=== PATIENT | male | born 1970 | race Caucasian/White ===

== ENCOUNTER 2018-12-23 15:08 | Emergency (ER) | payer OTHER, SELFPAY ==
[2018-12-23 15:09] VITALS: BP 150/97; PULSE 110; RESP 18; TEMP 36.7; O2SAT 95; BMI 40.1
--- NOTE | 2018-12-23 15:30 | ED.VISSUMM ---
- ER Visit Summary Date of Service: 12/23/18 Chief Complaint: Fever and cough History of Present Illness: The patient is a 48 M who developed fever, congestion, body aches on the . Symptoms seem to improve late last week and he went back to work. He is now noted increased congestion, sore throat, and cough again over the past 2 days. He reports fever up as high as 102. Several members of his family are ill with similar symptoms. Physical Examination: Blood pressure is 150/97, temperature 98.1, heart rate 110, respiratory rate 18, pulse ox 95% on room air. Patient sitting up on the side of bed. He has frequent moist sounding cough. He is in no distress. Head neck examination reveals clear fluid behind the right TM. Left TM is clear. Posterior pharynx examination is grossly unremarkable. Heart is regular rate and rhythm. Lungs sounds are clear. Abdomen soft nontender. Skin exam reveals no rash or lesions. Test Results: CBC is unremarkable. Chemistry studies significant for glucose of 400. Rapid strep is negative. Two-view chest x-ray read as early lingular infiltrate or atelectasis. Emergency Department Course and Treatment: Patient is given a liter of IV fluids and Tylenol. Test results were discussed with him. He had previously been on metformin XL, but stopped the medication in 2014 secondary to losing their insurance. He recently regained insurance but has not yet been back to establish a primary care physician. He will be given a dose of metformin at this time along with a dose of Levaquin. Repeat blood sugar after 1 L of fluid is 355. Patient will be given a prescription for metformin. He will contact his insurance company to find a local physician that accepts his insurance. Treatment Plan: [] Disposition: Discharge Impression: 1. Pneumonia 2. Diabetes with hyperglycemia secondary to medication noncompliance This note was generated with [employer] [facility] [employer] software. It may contain incorrect words, spelling, and punctuation that were not noted in review of the chart prior to signing ED Disposition - Plan for ED Patient: Referrals: Care Physician,No Primary [Primary Care Provider] -
[2018-12-23 15:36] VITALS: TEMP 36.7
[2018-12-23] MEDS: 0.9% Normal Saline 1,000 ML 1000 ML IV (15:43)
[2018-12-23] MEDS: Acetaminophen 500 MG Tablet 1000 MG PO (15:43)
--- NOTE | 2018-12-23 15:46 | RAD_ITS ---
STUDY: X-RAY CHEST REASON FOR EXAM: Male, 48 years old. Cough TECHNIQUE: PA and lateral views of the chest. COMPARISON: None. FINDINGS: Ill-defined opacity in the lingula is noted. There is no demonstrated pleural abnormality. Normal size heart. Normal mediastinum and meet. Normal visualized pulmonary arteries. Normal visualized aortic arch and descending thoracic aorta. Normal visualized thoracic spine. Normal visualized ribs, clavicles, and shoulders. There is no demonstrated abnormality of the visualized soft tissue structures of the upper abdomen. RAD/Chest PA and Lateral IMPRESSION: Early lingular infiltrate or atelectasis. Electronically Signed: Vega Gabriel MD at 16:01 EST , Service support ,
[2018-12-23 16:01] LABS: Absolute Lymphocyte Count 1.03 X10^3/ul (0.83-4.51); Absolute Neutrophil Count 3.7 X10^3/uL (2.0-7.7); Basophil# 0.05 X10^3/uL; Eosinophil# 0.13 X10^3/uL; Eosinophils% 2.5 % (0-5); Hematocrit 44.5 % (40-54); Hemoglobin 15.1 g/dl (13.0-16.5); Lymphocyte # 1.03 X10^3/ul (4.0); Lymphocyte % 19.6 % (19-41); Mean Corp Hgb Conc 33.9 g/gl (32-36); Mean Corpuscular Hgb 28.8 pg (27.0-32.0); Mean Corpuscular Volume 84.8 fL (80-94); Mean Platelet Vol. 10.4 fl (6.2-12.0); Monocyte# 0.32 X10^3/uL; Monocyte% 6.1 % (0-10); Neutrophil # 3.71 X10^3/uL (2.7-7.7); Neutrophil % 70.4 % (47-70); Platelet Count 155 K/mm3 (150-450); RBC Distribution Width CV 12.9 % (11.6-14.6); RBC Distribution Width SD 39.8 fl (35.1-43.9); Red Blood Count 5.25 M/mm3 (4.6-6.2); White Blood Count 5.3 K/mm3 (4.4-11.0)
[2018-12-23 16:02] LABS: POSITIVE COUNT NO; POSITIVE DIFFERENTIAL NO; POSITIVE MORPHOLOGY NO
[2018-12-23 16:07] LABS: Anion Gap 10 (5-15); BUN 15 mg/dL (7-18); BUN/Creat Ratio 13.3 RATIO (10-20); Calcium,Total 8.3 mg/dL (8.5-10.1); Chloride 99 mmol/L (98-107); Creatinine, Serum 1.13 mg/dL (0.70-1.30); EST Glomerular Filtration Rate 73 mL/min (>60); Est Glom Filt Rate - Afr Amer 88 mL/min (>60); Estimated Creatinine Clearance 88.38 ml/min; Glucose 400 mg/dL (74-106); Potassium 4.3 mmol/L (3.5-5.1); Sodium Level 135 mmol/L (136-145)
[2018-12-23] MEDS: levoFLOXacin 750 MG Tablet PO (16:27)
[2018-12-23 17:06] LABS: Bedside Glucose 355 mg/dL (70-110)
--- NOTE | 2018-12-23 17:10 | ED.DEP ---
ED Disposition - Plan for ED Patient: Disposition: Home or Assisted Living Instructions: ED Pneumonia Adult, ED Hyperglycemia Diabetic Prescriptions: Levofloxacin [Levaquin] 750 mg PO DAILY #4 tablet Metformin(XR) [Glucophage Xr] 1,000 mg PO DAILY #30 tablet Additional Instructions: Call your insurance company to get a list of local physicians.
[2018-12-23 17:21] VITALS: BP 130/106; RESP 18
== END 2018-12-23 17:22 | disposition home or self-care (01) ==
PROVIDERS: Emergency Provider Emergency Medicine
DX: J18.9 Pneumonia, unspecified organism (principal); E11.9 Type 2 diabetes mellitus without complications; Z91.14 Patient's other noncompliance with medication regimen; I25.2 Old myocardial infarction; Z87.442 Personal history of urinary calculi
CPT/HCPCS: 71046; 80048; 82962; 85025; 87880; 96360; 99284; J7030; A4216

== ENCOUNTER → 2019-05-29 | Outpatient (CLI) | payer OTHER, SELFPAY ==
[2019-05-29 10:25] LABS: Absolute Lymphocyte Count 0.82 X10^3/uL (0.83-4.51); Absolute Neutrophil Count 4.5 X10^3/uL (2.0-7.7); Basophil# 0.03 X10^3/uL; Basophil% 0.5 % (0-1); Eosinophil# 0.13 X10^3/uL; Eosinophils% 2.2 % (0-5); Hemoglobin 15.2 g/dL (13.0-16.5); Lymphocyte # 0.82 X10^3/ul (4.0); Lymphocyte % 13.8 % (19-41); Mean Corpuscular Hgb 28.8 pg (27.0-32.0); Mean Corpuscular Volume 87.3 fL (80-94); Mean Platelet Vol. 10.8 fl (6.2-12.0); Monocyte# 0.41 X10^3/uL; Monocyte% 6.9 % (0-10); NRBC Flagged by Analyzer 0 % (0-5); Neutrophil # 4.52 X10^3/uL (2.7-7.7); Neutrophil % 75.8 % (47-70); Platelet Count 172 K/mm3 (150-450); RBC Distribution Width CV 12.8 % (11.6-14.6); RBC Distribution Width SD 40.3 fl (35.1-43.9); Red Blood Count 5.27 M/mm3 (4.6-6.2)
[2019-05-29 10:44] LABS: Microalbumin,Random Urine 6.7 mg/L (NO RANGE EST.)
[2019-05-29 10:55] LABS: Vitamin B12 478 pg/mL (211-911)
[2019-05-29 11:19] LABS: ALB/GLOB Ratio 0.9 RATIO (0.9-2.4); AST(SGOT) 26 U/L (15-37); Alanine Aminotransfer ALT/SGPT 27 U/L (16-61); Albumin, Serum 3.3 g/dL (3.2-5.0); Alkaline Phosphatase 151 U/L (45-117); Anion Gap 10 (5-15); BUN 17 mg/dL (7-18); BUN/Creat Ratio 18.2 RATIO (10-20); Chloride 99 mmol/L (98-107); Cholesterol 206 mg/dL (200); Creatinine, Serum 0.94 mg/dL (0.70-1.30); EST Glomerular Filtration Rate 91 mL/min (>60); Est Glom Filt Rate - Afr Amer 110 mL/min (>60); Globulin 3.8 g/dL (2.2-4.2); Glucose 341 mg/dL (74-106); High Density Lipoprotein 35 mg/dL; Potassium 4.8 mmol/L (3.5-5.1); Protein, Total 7.1 g/dL (6.4-8.2); Sodium Level 137 mmol/L (136-145); Triglycerides 363 mg/dL; Very Low Density Lipoprotein 73 mg/dL (5-40)
[2019-05-29 14:14] LABS: T4 Free Direct 1.09 ng/dL (0.76-1.46)
[2019-06-04 14:27] LABS: Anti-Thyroglobulin AB < 1.0 IU/mL (0.0-0.9); Thyroglobulin, Serum Qt. 1.3 ng/mL (1.4-29.2); Thyroid Peroxidase AB 205 IU/mL (0-34); Vitamin B1, Thiamine 185.1 nmol/L (66.5-200.0)
== END | disposition home or self-care (01) ==
PROVIDERS: Family Provider Family Medicine; PCP Family Medicine; Referring Provider Family Medicine; Visit Provider Family Medicine
DX: E11.9 Type 2 diabetes mellitus without complications (principal); I25.10 Atherosclerotic heart disease of native coronary artery without angina pectoris; G62.9 Polyneuropathy, unspecified; R79.89 Other specified abnormal findings of blood chemistry
CPT/HCPCS: 80053; 80061; 82043; 82570; 82607; 83036; 84425; 84432; 84439; 84443; 85025; 86376; 86800

== ENCOUNTER → 2019-06-07 | Outpatient (CLI) | payer OTHER, SELFPAY ==
[2019-06-04 11:32] VITALS: BMI 39.3
--- NOTE | 2019-06-07 08:59 | ART_ITS ---
Reason For Study: decreased pedal pulses Left Segmental Pressures Left brachial= 122mmHg. Left posterior tibial artery = 148mmHg. Left dorsalis pedis artery = 133mmHg. The left dorsalis pedis waveforms are triphasic. The left posterior tibial artery waveforms are triphasic. Right Segmental Pressures Right brachial= 128mmHg. Right posterior tibial artery = 135mmHg. Right dorsalis pedis artery = 143mmHg. The right dorsalis pedis waveforms are triphasic. The right posterior tibial artery waveforms are triphasic. Indices The right ankle brachial index by the dorsalis pedis is 1.12. The right ankle brachial index by the posterior tibial artery is 1.05. The right ankle brachial index by the dorsalis pedis post exercise is 1.15. The left ankle brachial index by the dorsalis pedis is 1.04. The left ankle brachial index by the posterior tibial artery is 1.16. The left posterior tibial artery index post exercise is 1.21. Interpretation Summary Triphasic Doppler waveforms are noted at ankle level bilaterally. Pulse-volume recording waveform amplitudes are satisfactory at ankle and digital levels bilaterally. Resting ankle-brachial indices are normal bilaterally. Following a period of exercise, ankle pressures augment bilaterally, which is a normal physiological response. There is no evidence of significant arterial occlusive disease in the lower extremities bilaterally. Ordering Physician: Cb Rodriguez Performed By: SERVANDO CAMPOVERDE RVT
== END | disposition home or self-care (01) ==
LOC: CVS 08:56
PROVIDERS: Family Provider Family Medicine; PCP Family Medicine; Referring Provider Family Medicine; Visit Provider Family Medicine
DX: R09.89 Other specified symptoms and signs involving the circulatory and respiratory systems (principal)
CPT/HCPCS: 93922

== ENCOUNTER 2019-07-02 08:58 | Outpatient (RCR) | payer OTHER, SELFPAY ==
[2019-06-04 11:32] VITALS: BMI 39.3
== END 2019-07-02 23:59 | disposition home or self-care (01) ==
LOC: DC 08:58
PROVIDERS: Family Provider Family Medicine; PCP Family Medicine; Visit Provider Family Medicine
DX: Z71.3 Dietary counseling and surveillance (principal); E11.65 Type 2 diabetes mellitus with hyperglycemia
CPT/HCPCS: 97802

== ENCOUNTER → 2019-07-18 | Outpatient (CLI) | payer OTHER, SELFPAY ==
[2019-06-04 11:32] VITALS: BMI 39.3
--- NOTE | 2019-07-18 06:24 | ECHOCS_ITS ---
Reason For Study: DIZZINESS Procedure This was a 2D Doppler, Color Flow transthoracic echocardiogram. The study was technically difficult. Contrast injection was performed. Exam performed in department. Left Ventricle Normal size and thickness. The estimated ejection fraction is 55 %. No evidence for diastolic dysfunction. No regional wall motion abnormalities noted. Right Ventricle Normal RV size. Normal systolic function. Atria Normal left atrium. Normal right atrium. No doppler evidence for ASD. Mitral Valve There is no mitral valve stenosis. Mild (1+) mitral valve insufficiency. Tricuspid Valve There is no tricuspid stenosis. Trivial tricuspid valve insufficiency. Unable to estimate RV systolic pressure due to insufficient tricuspid regurgitant envelope. Aortic Valve Trisinus/trileaflet aortic valve. There is no aortic stenosis. No aortic valve insufficiency. Pulmonic Valve There is no pulmonic valvular stenosis. Trivial pulmonic valve insufficiency. Great Vessels Normal aortic root. Pericardium/Pleural No pericardial effusion. Medication Diluted definity 4.0ml given slow IV push to enhance endocardial definition. MMode/2D Measurements & Calculations LVIDd: 4.4 cm IVSd: 0.84 cm Ao root diam: 3.8 cm LVIDs: 3.3 cm LVPWd: 1.0 cm RVDd: 3.9 cm FS: 24.1 % LAV(MOD-bp): 66.7 ml EDV(MOD-sp4): 147.1 ml EDV(MOD-sp2): 100.6 ml LAV(MOD-bp) Indexed: 25.9 ml/m2 ESV(MOD-sp4): 75.1 ml EF(MOD-sp2): 62.0 % LAV(MOD-sp2): 51.3 ml EF(MOD-sp4): 49.0 % LAV(MOD-sp4): 67.1 ml SV(MOD-sp4): 72.0 ml SV(MOD-sp2): 62.4 ml LA A4 area: 23.3 cm2 LA dimension(2D): 3.7 cm RA A4 area: 16.0 cm2 Time Measurements MV dec time: 0.19 sec Doppler Measurements & Calculations MV E max pedro: 58.3 cm/sec Ao V2 max: 111.2 cm/sec LV V1 max: 101.4 cm/sec MV A max pedro: 70.6 cm/sec Ao max P.9 mmHg LV V1 max P.1 mmHg MV E/A: 0.83 PA V2 max: 77.5 cm/sec TR max pedro: 250.5 cm/sec TR max P.2 mmHg Interpretation Summary The estimated ejection fraction is 55 %. No evidence for diastolic dysfunction. Mild (1+) mitral valve insufficiency. The study was technically difficult. Contrast injection was performed. Ordering Physician: Rowan Sanchez Referring Physician: MASSIEL ROUSSEAU Performed By: Melanie Richard, BERTHA, RVT
--- NOTE | 2019-07-19 15:55 | STRESSREP_ITS ---
Stress Test Report Date: 07/18/2019 Procedure: Exercise tolerance test/imaging study Indications: Chest pain Consent: Per the patient Procedure: The patient exercised on a Moshe protocol for 5 minutes and 44 seconds achieving a peak heart rate of 157 bpm (92 % predicted maximal heart rate) with a peak blood pressure 184/90 mmHg and a peak MET capacity of 7 METs. The baseline ECG demonstrated normal sinus rhythm. The peak exercise ECG demonstrated sinus tachycardia with no significant ischemic changes. EKG during recovery revealed no significant ischemic changes [There were no cardiac dysrhythmias pretest, during exercise, or recovery]. The functional capacity was considered below average for age. There was [no complaint of chest discomfort during exercise or recovery]. The examination was discontinued secondary to dyspnea and lightheadedness. Impression: 1. Technically adequate (percent predicted maximal heart rate greater than 85%) exercise tolerance test 2. Stress test is negative for exercise-induced EKG changes of ischemia 3. The test test is negative for exercise-induced chest pain 4. Functional capacity is below average for age 5. Nuclear images pending Myocardial perfusion imaging study: Technique: The patient was injected with 14.3 mCi of technetium 99m Cardiolite and subsequently rest SPECT Cardiolite nuclear imaging was obtained in the horizontal long, vertical long, and short axis views. The patient exercised on a Moshe protocol. Please see above for details. The patient was injected with 44.6 mCi of technetium 99m Cardiolite and subsequently stress SPECT Cardiolite nuclear imaging was obtained in the horizontal long, vertical long, and short axis views. A gated Cardiolite study at peak stress was obtained. Interpretation: Rest and stress SPECT Cardiolite nuclear imaging status post realignment, normalization, and attenuation correction, demonstrates normal myocardial radi oisotope uptake in both the rest and stress images. The gated Cardiolite study demonstrates no significant regional wall motion abnormalities. The reported LVEF is 56 %. Impression: 1. There is no evidence of significant ischemia or infarction. 2. The gated Cardiolite study reports an LVEF of 56 %. This note was generated with [employer] software. It may contain incorrect words, spelling, and punctuation that were not noted in checking the note before signing.
== END | disposition home or self-care (01) ==
LOC: CVS 06:24
PROVIDERS: Family Provider Family Medicine; PCP Family Medicine; Referring Provider Specialist; Visit Provider Specialist
DX: R07.9 Chest pain, unspecified (principal); R42 Dizziness and giddiness
CPT/HCPCS: 78452; 93017; 93306; A9500; Q9957; A4216; C8929

== ENCOUNTER → 2019-08-22 | Outpatient (CLI) | payer OTHER, SELFPAY ==
[2019-07-30 11:23] VITALS: BMI 40.8
[2019-08-22 15:36] LABS: Absolute Lymphocyte Count 1.19 X10^3/uL (0.83-4.51); Absolute Neutrophil Count 6.8 X10^3/uL (2.0-7.7); Basophil# 0.04 X10^3/uL; Basophil% 0.5 % (0-1); Eosinophil# 0.14 X10^3/uL; Eosinophils% 1.6 % (0-5); Hematocrit 47.2 % (40-54); Hemoglobin 15.3 g/dL (13.0-16.5); Lymphocyte # 1.19 X10^3/ul (4.0); Lymphocyte % 13.6 % (19-41); Mean Corp Hgb Conc 32.4 g/dL (32-36); Mean Corpuscular Hgb 28.3 pg (27.0-32.0); Mean Corpuscular Volume 87.4 fL (80-94); Mean Platelet Vol. 10.8 fl (6.2-12.0); Monocyte# 0.57 X10^3/uL; Monocyte% 6.5 % (0-10); NRBC Flagged by Analyzer 0 % (0-5); Neutrophil # 6.75 X10^3/uL (2.7-7.7); Neutrophil % 77.2 % (47-70); Platelet Count 228 K/mm3 (150-450); RBC Distribution Width CV 12.7 % (11.6-14.6); RBC Distribution Width SD 40.4 fl (35.1-43.9); White Blood Count 8.7 K/mm3 (4.4-11.0)
[2019-08-22 15:46] LABS: Anion Gap 4 (5-15); BUN 17 mg/dL (7-18); BUN/Creat Ratio 17.7 RATIO (10-20); Calcium,Total 8.7 mg/dL (8.5-10.1); Chloride 105 mmol/L (98-107); Creatinine, Serum 0.96 mg/dL (0.70-1.30); EST Glomerular Filtration Rate 88 mL/min (>60); Est Glom Filt Rate - Afr Amer 106 mL/min (>60); Glucose 193 mg/dL (74-106); Magnesium 2.1 mg/dL (1.6-2.6); Potassium 4.6 mmol/L (3.5-5.1); Sodium Level 138 mmol/L (136-145)
[2019-08-26 11:26] LABS: Thyroid Stim Hormone (TSH) 4.52 uIU/mL (0.358-3.74)
== END | disposition home or self-care (01) ==
LOC: MFPLAB 12:30
PROVIDERS: Family Provider Family Medicine; PCP Family Medicine; Referring Provider Family Medicine; Visit Provider Family Medicine
DX: R19.7 Diarrhea, unspecified (principal); E06.3 Autoimmune thyroiditis; E66.01 Morbid (severe) obesity due to excess calories; E11.9 Type 2 diabetes mellitus without complications
CPT/HCPCS: 36415; 80048; 83036; 83735; 84439; 84443; 85025; 87177; 87209; 87493; 87506

== ENCOUNTER 2019-09-27 07:03 | Day surgery (SDC) | payer OTHER, SELFPAY ==
[2019-09-18 11:05] VITALS: BMI 41.5
[2019-09-18 13:37] LABS: Hematocrit 46.3 % (40-54); Hemoglobin 14.9 g/dL (13.0-16.5); Mean Corp Hgb Conc 32.2 g/dL (32-36); Mean Corpuscular Hgb 28.2 pg (27.0-32.0); Mean Corpuscular Volume 87.5 fL (80-94); Mean Platelet Vol. 10.5 fl (6.2-12.0); Platelet Count 216 K/mm3 (150-450); RBC Distribution Width SD 40.8 fl (35.1-43.9); Red Blood Count 5.29 M/mm3 (4.6-6.2); White Blood Count 6.5 K/mm3 (4.4-11.0)
[2019-09-18 13:56] LABS: Anion Gap 5 (5-15); BUN 18 mg/dL (7-18); Calcium,Total 9.2 mg/dL (8.5-10.1); Chloride 102 mmol/L (98-107); EST Glomerular Filtration Rate 95 mL/min (>60); Est Glom Filt Rate - Afr Amer 115 mL/min (>60); Glucose 226 mg/dL (74-106); Potassium 4.3 mmol/L (3.5-5.1); Sodium Level 138 mmol/L (136-145)
[2019-09-25 13:15] VITALS: BMI 41.5
--- NOTE | 2019-09-27 08:24 | CL.IE_ITS ---
Patient: JONEL MINOR Study Date: 09/27/2019 Performing: Anatoly Leggett MD : 1970 Age: 48 Gender: male PROCEDURES PERFORMED CO37-SPPUOKIME OF LOOP RECORDER INDICATIONS Syncope PROCEDURE DETAILS The patient was brought to the Catheterization Lab in the postabsorptive nonsedated state. Infor med consent was obtained prior to the procedure. Local anesthetic was given subcutaneously to the le ft subclavian region with Nesacaine 2%. Incision was made to the left subclavicular area. ICM Reveal LINQ was inserted into the pocket. The patient tolerated the procedure well. 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 Device Recommendations: Follow up with Primary Care Physician PROCEDURE MEDICATIONS Versed 1 mg IV Oxygen: 2 L/min via nasal cannula Antibiotic given in appropriate timeframe. Ancef 2 Gm IV @ 09/27/2019 07:57:06 Signed By Anatoly Leggett MD On 09/27/2019 08:22:57 Anatoly Leggett MD
== END 2019-09-27 09:30 | disposition home or self-care (01) ==
LOC: CLSP 07:03
PROVIDERS: Specialist; Family Provider Family Medicine; PCP Family Medicine; Referring Provider Internal Medicine Cardiovascular Disease; Visit Provider Internal Medicine Cardiovascular Disease
DX: R55 Syncope and collapse (principal); R07.89 Other chest pain; R00.2 Palpitations; E11.9 Type 2 diabetes mellitus without complications; I10 Essential (primary) hypertension; E03.9 Hypothyroidism, unspecified; G47.33 Obstructive sleep apnea (adult) (pediatric); F41.1 Generalized anxiety disorder; E66.9 Obesity, unspecified; Z88.8 Allergy status to other drugs, medicaments and biological substances; Z88.6 Allergy status to analgesic agent; Z91.040 Latex allergy status; Z79.4 Long term (current) use of insulin; Z79.899 Other long term (current) drug therapy; Z87.11 Personal history of peptic ulcer disease
CPT/HCPCS: 33285; 36415; 80048; 85027; 99152; 99153; J7040

== ENCOUNTER → 2020-04-27 08:44 | Outpatient (CLI) | payer OTHER, SELFPAY ==
[2020-01-06 08:49] VITALS: BMI 43.7
[2020-04-27 09:47] LABS: Absolute Neutrophil Count 4.4 X10^3/uL (2.0-7.7); Basophil# 0.03 X10^3/uL; Basophil% 0.5 % (0-1); Eosinophil# 0.17 X10^3/uL; Eosinophils% 2.8 % (0-5); Hemoglobin 15.2 g/dL (13.0-16.5); Mean Corpuscular Hgb 28.7 pg (27.0-32.0); Mean Platelet Vol. 10.9 fl (6.2-12.0); Monocyte# 0.45 X10^3/uL; Monocyte% 7.5 % (0-10); NRBC Flagged by Analyzer 0 % (0-5); Neutrophil # 4.42 X10^3/uL (2.7-7.7); Neutrophil % 73.5 % (47-70); Platelet Count 193 K/mm3 (150-450); RBC Distribution Width CV 12.7 % (11.6-14.6); RBC Distribution Width SD 39.9 fl (35.1-43.9); Red Blood Count 5.29 M/mm3 (4.6-6.2)
[2020-04-27 10:19] LABS: Hemoglobin A1c 11.1 % (3.8-5.6)
[2020-04-27 10:24] LABS: ALB/GLOB Ratio 0.9 RATIO (0.9-2.4); AST(SGOT) 16 U/L (15-37); Alanine Aminotransfer ALT/SGPT 23 U/L (16-61); Albumin, Serum 3.3 g/dL (3.2-5.0); Alkaline Phosphatase 155 U/L (45-117); Anion Gap 6 (5-15); BUN 19 mg/dL (7-18); BUN/Creat Ratio 20.7 RATIO (10-20); Calcium,Total 8.4 mg/dL (8.5-10.1); Chloride 103 mmol/L (98-107); Cholesterol 191 mg/dL (200); Creatinine, Serum 0.92 mg/dL (0.70-1.30); EST Glomerular Filtration Rate 93 mL/min (>60); Est Glom Filt Rate - Afr Amer 112 mL/min (>60); Globulin 3.7 g/dL (2.2-4.2); Glucose 366 mg/dL (74-106); High Density Lipoprotein 32 mg/dL; Potassium 4.3 mmol/L (3.5-5.1); Sodium Level 135 mmol/L (136-145); T4 Free Direct 0.98 ng/dL (0.76-1.46); Thyroid Stim Hormone (TSH) 7.83 uIU/mL (0.358-3.74); Triglycerides 359 mg/dL; Very Low Density Lipoprotein 72 mg/dL (5-40)
[2020-04-27 10:29] LABS: Microalbumin,Random Urine 9.2 mg/L (NO RANGE EST.)
[2020-04-28 16:33] LABS: Anti-Thyroglobulin AB < 1.0 IU/mL (0.0-0.9); Thyroglobulin, Serum Qt. 0.7 ng/mL (1.4-29.2); Thyroid Peroxidase AB 209 IU/mL (0-34)
== END ==
PROVIDERS: PCP Family Medicine; Visit Provider Family Medicine
DX: I25.10 Atherosclerotic heart disease of native coronary artery without angina pectoris (principal); E06.3 Autoimmune thyroiditis; E11.65 Type 2 diabetes mellitus with hyperglycemia
CPT/HCPCS: 36415; 80053; 80061; 82043; 82570; 83036; 84432; 84439; 84443; 85025; 86376; 86800

== ENCOUNTER → 2020-04-30 | Outpatient (CLI) | payer OTHER, SELFPAY ==
[2020-01-06 08:49] VITALS: BMI 43.7
--- NOTE | 2020-04-30 09:53 | US_ITS ---
STUDY: ABDOMINAL ULTRASOUND - RIGHT UPPER QUADRANT REASON FOR VISIT: Male, 49 years old RUQ PAIN TECHNIQUE: Ultrasound evaluation of the right upper quadrant was performed with real-time and static louis-scale imaging. TECHNICAL QUALITY: Limited. Examination limited due to a combination of factors including obesity and bowel gas. COMPARISON: None. FINDINGS: Liver: The liver measures 23.4 cm. There is increased echogenicity consistent with fatty infiltration. The bile ducts are within normal limits. There is hepatic color flow. The direction of portal flow is hepatopetal. There is no demonstrated mass lesion. Gallbladder: Normal distended gallbladder. The gallbladder wall measures 2 mm. There is a negative sonographic Larose''s sign. There is no pericholecystic fluid. There are no gallstones. Common Bile Duct (C.B.D.): The common bile duct is not visualized Pancreas: Visualized pancreas is unremarkable aside from being echogenic Right Kidney: Normal size of the right kidney. The right kidney measures 12.6 x 5.6 x 6.0 cm. Normal renal cortex. The right cortex measures 1.7 cm. There is no demonstrated renal mass or cyst. There is no right hydronephrosis, there is nonspecific borderline dilatation of the renal pelvis at 1.8 cm.. US/Abdomen Limited IMPRESSION: Hepatomegaly with diffuse fatty infiltration of the liver, no discrete lesion Nonspecific echogenic pancreas Electronically Signed: Juan Carlos Pérez MD at 10:46 EDT , Service support ,
== END | disposition home or self-care (01) ==
LOC: US 09:50
PROVIDERS: PCP Family Medicine; Referring Provider Family Medicine; Visit Provider Family Medicine
DX: R10.11 Right upper quadrant pain (principal)
CPT/HCPCS: 76705

== ENCOUNTER → 2020-07-27 | Outpatient (CLI) | payer OTHER, SELFPAY ==
[2020-01-06 08:49] VITALS: BMI 43.7
[2020-07-27 10:11] LABS: Hemoglobin A1c 11.1 % (3.8-5.6)
[2020-07-27 10:16] LABS: ALB/GLOB Ratio 0.9 RATIO (0.9-2.4); AST(SGOT) 17 U/L (15-37); Alanine Aminotransfer ALT/SGPT 23 U/L (16-61); Albumin, Serum 3.4 g/dL (3.2-5.0); Alkaline Phosphatase 147 U/L (45-117); Anion Gap 6 (5-15); BUN 19 mg/dL (7-18); BUN/Creat Ratio 20.3 RATIO (10-20); Calcium,Total 8.8 mg/dL (8.5-10.1); Chloride 98 mmol/L (98-107); Cholesterol 175 mg/dL (200); Creatinine, Serum 0.93 mg/dL (0.70-1.30); EST Glomerular Filtration Rate 90 mL/min (>60); Est Glom Filt Rate - Afr Amer 109 mL/min (>60); Globulin 3.6 g/dL (2.2-4.2); Glucose 354 mg/dL (74-106); High Density Lipoprotein 37 mg/dL; Potassium 4.4 mmol/L (3.5-5.1); Sodium Level 134 mmol/L (136-145); T4 Free Direct 1.04 ng/dL (0.76-1.46); Thyroid Stim Hormone (TSH) 6.42 uIU/mL (0.358-3.74); Triglycerides 261 mg/dL; Very Low Density Lipoprotein 52 mg/dL (5-40)
== END | disposition home or self-care (01) ==
LOC: MFPLAB 08:04
PROVIDERS: PCP Family Medicine; Referring Provider Family Medicine; Visit Provider Family Medicine
DX: E11.65 Type 2 diabetes mellitus with hyperglycemia (principal); E06.3 Autoimmune thyroiditis
CPT/HCPCS: 36415; 80053; 80061; 83036; 84439; 84443

== ENCOUNTER → 2020-09-14 | Outpatient (CLI) | payer OTHER, SELFPAY ==
[2020-01-06 08:49] VITALS: BMI 43.7
== END | disposition home or self-care (01) ==
PROVIDERS: PCP Family Medicine; Referring Provider Family Medicine; Visit Provider Nurse Practitioner Family
DX: U07.1 COVID-19 (principal); R05 Cough
CPT/HCPCS: 87633; 87635; U0003

== ENCOUNTER → 2020-12-30 10:00 | Outpatient (CLI) | payer OTHER, SELFPAY ==
[2020-01-06 08:49] VITALS: BMI 43.7
[2020-12-30 12:15] LABS: Absolute Lymphocyte Count 0.92 X10^3/uL (0.83-4.51); Absolute Neutrophil Count 5.6 X10^3/uL (2.0-7.7); Basophil# 0.05 X10^3/uL; Basophil% 0.7 % (0-1); Eosinophil# 0.12 X10^3/uL; Eosinophils% 1.7 % (0-5); Hematocrit 46.9 % (40-54); Hemoglobin 14.8 g/dL (13.0-16.5); Lymphocyte # 0.92 X10^3/ul (4.0); Lymphocyte % 12.8 % (19-41); Mean Corp Hgb Conc 31.6 g/dL (32-36); Mean Corpuscular Volume 88.8 fL (80-94); Mean Platelet Vol. 10.9 fl (6.2-12.0); Monocyte% 6.9 % (0-10); NRBC Flagged by Analyzer 0 % (0-5); Neutrophil # 5.58 X10^3/uL (2.7-7.7); Neutrophil % 77.3 % (47-70); Platelet Count 230 K/mm3 (150-450); RBC Distribution Width CV 13.5 % (11.6-14.6); Red Blood Count 5.28 M/mm3 (4.6-6.2); White Blood Count 7.2 K/mm3 (4.4-11.0)
[2020-12-30 12:44] LABS: Microalbumin,Random Urine 8.5 mg/L (NO RANGE EST.); Microalbumin:Creatinine Ratio 12.3 mg/g CRE (<30 mg/g CRE)
[2020-12-30 12:52] LABS: Hemoglobin A1c 8.2 % (3.8-5.6)
[2020-12-30 12:53] LABS: AST(SGOT) 15 U/L (15-37); Alanine Aminotransfer ALT/SGPT 17 U/L (16-61); Albumin, Serum 3.7 g/dL (3.2-5.0); Alkaline Phosphatase 99 U/L (45-117); Anion Gap 6 (5-15); BUN 22 mg/dL (7-18); BUN/Creat Ratio 25.2 RATIO (10-20); Calcium,Total 8.9 mg/dL (8.5-10.1); Chloride 104 mmol/L (98-107); Cholesterol 132 mg/dL (200); Creatinine, Serum 0.87 mg/dL (0.70-1.30); EST Glomerular Filtration Rate 98 mL/min (>60); Est Glom Filt Rate - Afr Amer 118 mL/min (>60); Globulin 3.6 g/dL (2.2-4.2); Glucose 138 mg/dL (74-106); High Density Lipoprotein 43 mg/dL; Potassium 3.9 mmol/L (3.5-5.1); Protein, Total 7.3 g/dL (6.4-8.2); Sodium Level 138 mmol/L (136-145); T4 Free Direct 1.01 ng/dL (0.76-1.46); Thyroid Stim Hormone (TSH) 5.13 uIU/mL (0.358-3.74); Triglycerides 124 mg/dL; Very Low Density Lipoprotein 25 mg/dL (5-40)
== END ==
PROVIDERS: PCP Family Medicine; Referring Provider Family Medicine; Visit Provider Family Medicine
DX: E11.65 Type 2 diabetes mellitus with hyperglycemia (principal); E06.3 Autoimmune thyroiditis; I25.10 Atherosclerotic heart disease of native coronary artery without angina pectoris
CPT/HCPCS: 36415; 80053; 80061; 82043; 82570; 83036; 84439; 84443; 85025

== ENCOUNTER → 2021-01-16 09:27 | Outpatient (CLI) | payer OTHER, SELFPAY ==
[2020-01-06 08:49] VITALS: BMI 43.7
--- NOTE | 2021-01-16 09:29 | RAD_ITS ---
STUDY: X-RAY - LUMBAR SPINE REASON FOR EXAM: Male, 50 years old. BACK/LEG PAIN TECHNIQUE: 2 view(s) of the lumbar spine were obtained. COMPARISON: None FINDINGS: Normal lumbar lordosis. There is no substantial scoliosis. There is a normal alignment of the vertebrae. Normal vertebral bodies and endplates. Normal disc space heights. The soft tissue structures are unremarkable. RAD/Lumbar Spine 2 or 3 Views IMPRESSION: Normal x-ray examination of the lumbar spine. Electronically Signed: Glenn Rodriguez MD at 9:55 EST Tel , Service support ,
== END ==
PROVIDERS: PCP Family Medicine; Referring Provider Anesthesiology Pain Medicine; Visit Provider Anesthesiology Pain Medicine
DX: M54.5 Low back pain (principal); M79.606 Pain in leg, unspecified
CPT/HCPCS: 72100

== ENCOUNTER 2021-03-11 09:00 | Outpatient (RCR) | payer OTHER, SELFPAY ==
[2020-01-06 08:49] VITALS: BMI 43.7
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
--- NOTE | 2021-02-15 08:58 | HP.PTREVAL_ITS ---
Dr. Chary Becerra MD, It has been my pleasure to treat JONEL MINOR Sr. over the last 9 visits for BACK PAIN AND LEG PAIN. Please see the progress note below for an update on the physical therapy plan of care! 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 STATES HE NEEDS A NEW MATRESS AT THE CAMPER TOO BECAUSE HIS CURRENT ONE IS REALLY HARD ON HIM. PATIENT REPORTS HE HAS LEARNED OVER THE LAST MONTH WITH PT DIFFERENT TECHNIQUES TO TRY TO HELP HIS PAIN. PATIENT FEELS HE WOULD BENEFIT FROM MORE PT AND HE FEELS THE LAND AND WATER PT ARE BOTH HELPFUL. PATIENT REPORTS THE LAST PROCEEDURE FROM DR. BECERRA ABOUT 2 WEEKS AGO HELPED AND CUT SOME OF HIS PAIN BUT HE STILL CAN'T WALK LONG ENOUGH TO SHOP AT [employer] FOR EXAMPLE. Objective/Function: PATIENT WAS SEEN TODAY FOR RE-ASSESSMENT OF PROGRESS TOWARD THE SET PT GOALS AND THE NEED FOR FURTHER PHYSICAL THERAPY VS READINESS FOR DISCHARGE. PATIENT S MAKING SLOW PROGRESS WITH LAND AND WATER PT AND IS A GOOD CANDIDATE TO CONTINUE PT BASED ON ROOM FOR FURTHER IMPROVEMENT. HE IS ACTUALLY A BETTER CANDIDATE FOR AQUATIC THERAPY IN CONJUNCTION WITH CURRENT HOME INSTRUCTIONS. PATIENT IS AGREEABLE. UPON EXAM TODAY: INDEP GAIT INTO PT WITHOUT ANY ASSISTIVE DEVICES AND NO LOB. INDEP TRANSFER SIT TO STAND WITHOUT UE ASSIST. Motor deficit: MARLENA LE'S GROSSLY 5/5 WITH MMT'ING. Sensory deficit: PATIENT APPEARS TO HAVE ALTERED MARLENA LE LIGHT TOUCH SNESATION WITH TESTING TODAY. ROM deficit: TIGHT MARLENA LE HIP FLEXORS, HIP EXTERNAL ROTATIORS, HS'S AND GASTROC SOLEUS COMPLEX'S. Dural Signs: POSITIVE MARLENA LE'S. Lumbar mvmt loss: flex - MOD. ext - MOD. R SG - MIN. L SG - MIN. PATIENT C/O INCREASED LBP WITH LUMBAR ROM TESTING ALL PLANES. Core strength: POOR. Palpation: TENDERNESS WITH LIGHT PALAPTION OF THE L345S1 REGIONS. INCREASED MUSCLE TONE MARLENA PARASPINALS. PATIENT TOLERATED NEW EX'S WELL AND DEMO'D GOOD TECHNIQUE AFTER INSTRUCTIONS GIVEN. Plan Plan: CONT WITH AQUATIC PT APPROX 2 TIMES A WK X 5 WEEKS. PATIENT AGREEABLE. *Progress hip flexor/quad stretch and piriformis stretch to HEP next (Given with written descriptions). *Has been given his own copy of I pool program for progression to I. However, would benefit from continued AT at this time. COMBINATION OF AQUATIC THERAPY AND LAND THERAPY FOR PAIN REDUCTION, US TO TENDER AREAS OF LOW BACK, IF E-STIM WITH MH OR CP TO MARLENA LUMBAR PARASPINALS. POSTURE CORRECTION/STRENGTHENING, INSTRUCTION IN APPROPRIATE BODY MECHANICS AND ACTIVITY MODIFICATIONS. DLS STARTING WITH A NEUTRAL SPINE PROGRESSING ROM TOLERATED. MARLENA LE ROM, STRETCHING AND STRENGTHENING. HEP INSTRUCTION. PATIENT IS AGREEABLE AND REFERS TO POOLS THAT HE HAS ACCESS TO FOR CONTINUED EX IF NEEDED. Goals Goal 1:: DECREASE C/O BACK AND LE SX'S. Goal Time Frame: 4-6 Weeks Goal Progress: Progressing Goal 2:: IMPROVE PERSONAL CARE, LIFTING, WALKING, SITTING, STANDING, SLEEP, SOCIAL LIFE, TRAVEL AND WORK/HOMEMAKING FUNCTION Goal Time Frame: 4-6 Weeks Goal Progress: Progressing Goal 3:: INSTRUCT IN PROPHYLAXIS Goal Time Frame: 4-6 Weeks Goal Progress: Progressing Anticipated Interventions Patient/Client Instruction: Educate patient on: Condition, Plan of Care, Risk Factors, Benefits of Fitness Program For the Purpose of:: To improve self management Therapeutic Exercise to Include: Strength training, Body mechanics, Postural training, Flexibilty training, Neuromotor development, In an aquatic setting, Dynamic Lumbar Stabilization For the Purpose of:: To decrease pain, To improve muscle performance and motor function, To increase tolerance to activity/condition/position, To improve ability of physical actions for home/community/work/leisure TENS: Yes IF ES: Yes Cryotherapy (ice pack, ice massage): Yes Thermo therapy (hot pack): Yes Ultrasound (thermal/non thermal): Yes For the Purpose of:: To decrease pain, To improve nutrient delivery to tissue Please do not hesitate to contact me at [phone] by phone or if you have questions or concerns regarding this new plan of care! Sincerely, Katerina Lofton, PT, Cert MDT
--- NOTE | 2021-09-14 13:01 | HP.PT.NRP ---
JONEL MINOR Sr. was seen in my office for initial evaluation on 01/15/21. The following Plan of Care was established for this patient: Initial Frequency: 2-3x /Week Initial Duration: 4-6 Weeks Patient/Client Instruction: Educate patient on: Condition, Plan of Care, Risk Factors, Benefits of Fitness Program For the Purpose of:: To improve self management Therapeutic Exercise to Include: Strength training, Body mechanics, Postural training, Flexibilty training, Neuromotor development, In an aquatic setting, Dynamic Lumbar Stabilization For the Purpose of:: To decrease pain, To improve muscle performance and motor function, To increase tolerance to activity/condition/position, To improve ability of physical actions for home/community/work/leisure TENS: Yes IF ES: Yes Cryotherapy (ice pack, ice massage): Yes Thermo therapy (hot pack): Yes Ultrasound (thermal/non thermal): Yes For the Purpose of:: To decrease pain, To improve nutrient delivery to tissue This patient was last seen in our office 03/11/21. Pertinent comments regarding their Physical therapy will appear below: This patient has not returned to Physical Therapy and is appropriate to return to MD for further follow-up as needed. At this point I will be discontinuing this patient from physical therapy. I would be happy to see this patient again in the future if found appropriate by the physician. Thank you! Katerina Lofton, PT, Cert MDT Balance/Gait/Functional tests - Balance/Special Test Scores Oswestry Low Back Score: 23
== END 2021-03-11 19:00 | disposition home or self-care (01) ==
LOC: PT 09:00
PROVIDERS: PCP Family Medicine; Referring Provider Anesthesiology Pain Medicine; Visit Provider Anesthesiology Pain Medicine
DX: M54.9 Dorsalgia, unspecified (principal); M79.606 Pain in leg, unspecified
CPT/HCPCS: 97014; 97112; 97113; 97162; 97164; 97530; G0283

== ENCOUNTER → 2021-03-29 10:46 | Outpatient (CLI) | payer OTHER, SELFPAY ==
[2020-01-06 08:49] VITALS: BMI 43.7
[2021-03-29 11:45] LABS: Amphetamine Urine VISTA NEGATIVE (<1000 ng/mL); Barbiturate Urine VISTA NEGATIVE (< 200 ng/mL); Benzodiazepine Urine VISTA NEGATIVE (< 200 ng/mL); Cocaine Urine VISTA NEGATIVE (< 300 ng/mL); Ecstacy Urine VISTA NEGATIVE (< 500 ng/mL); Methadone Urine VISTA NEGATIVE (< 300 ng/mL); PCP Urine VISTA NEGATIVE (< 25 ng/mL); THC Urine VISTA NEGATIVE (< 50 ng/mL); Vista UDS pH Range 5
== END ==
PROVIDERS: PCP Family Medicine; Referring Provider Anesthesiology Pain Medicine; Visit Provider Anesthesiology Pain Medicine
DX: F11.20 Opioid dependence, uncomplicated (principal)
CPT/HCPCS: 80307

== ENCOUNTER → 2021-04-08 06:31 | Outpatient (CLI) | payer OTHER, SELFPAY ==
[2020-01-06 08:49] VITALS: BMI 43.7
--- NOTE | 2021-04-07 15:19 | RAD_ITS ---
STUDY: X-RAY - ORBITS REASON FOR EXAM: Male, 50 years old. PRE MRI SCREEN TECHNIQUE: 2 view(s) of the orbits were obtained. COMPARISON: None. FINDINGS: Normal bilateral orbits without a metallic orbital foreign body. Normal visualized facial bones. Normal paranasal sinuses. The soft tissue structures are unremarkable. RAD/Orbits for Foreign Body IMPRESSION: No demonstrated metallic orbital foreign body. The patient is cleared for an MRI examination. Electronically Signed: Master Hunter MD at 15:31 EDT , Service support ,
--- NOTE | 2021-04-08 07:36 | MRI_ITS ---
STUDY: MRI LUMBAR SPINE WITHOUT CONTRAST REASON FOR EXAM: Male, 50 years old. BACK PAIN TECHNIQUE: Standardized fat and water weighted pulse sequences were obtained in the sagittal and axial planes. COMPARISON: X-ray 01/16/2021 FINDINGS: T12-L1: Normal endplates. Normal disc height, hydration and morphology. Normal bilateral facet joints. Normal central canal and bilateral lateral recesses. Normal bilateral intervertebral neural foramina. Normal lumbar lordosis. There is no substantial scoliosis. Normal conus medullaris that terminates at the L1. Prominent hemangiomas of the L2 and L5 vertebral bodies. L1-2: Normal endplates. Normal disc height, hydration and morphology. Normal bilateral facet joints. Normal central canal and bilateral lateral recesses. Normal bilateral intervertebral neural foramina. L2-3: Normal endplates. Normal disc height, hydration and morphology. Normal bilateral facet joints. Normal central canal and bilateral lateral recesses. Normal bilateral intervertebral neural foramina. L3-4: Normal endplates. Normal disc height, hydration and morphology. Normal bilateral facet joints. Normal central canal and bilateral lateral recesses. Normal bilateral intervertebral neural foramina. L4-5: Normal endplates. Normal disc height, hydration and morphology. Normal bilateral facet joints. Normal central canal and bilateral lateral recesses. Normal bilateral intervertebral neural foramina. L5-S1: Normal endplates. Normal disc height, hydration and morphology. Normal bilateral facet joints. Normal central canal and bilateral lateral recesses. Normal bilateral intervertebral neural foramina. Normal visualized sacral ala. Moderate friction related edema of the posterior subcutaneous fat. MRI/Spine Lumbar (Routine) IMPRESSION: Normal unenhanced MR examination of the lumbar spine. Electronically Signed: Glenn Rodriguez MD at 13:28 EDT Tel , Service support ,
== END ==
PROVIDERS: PCP Family Medicine; Referring Provider Anesthesiology Pain Medicine; Visit Provider Anesthesiology Pain Medicine
DX: M54.9 Dorsalgia, unspecified (principal); M79.606 Pain in leg, unspecified
CPT/HCPCS: 70030; 72148

== ENCOUNTER → 2021-04-27 09:53 | Outpatient (CLI) | payer OTHER, SELFPAY ==
[2020-01-06 08:49] VITALS: BMI 43.7
[2021-04-27 12:44] LABS: Absolute Lymphocyte Count 0.98 X10^3/uL (0.83-4.51); Absolute Neutrophil Count 6.4 X10^3/uL (2.0-7.7); Basophil# 0.04 X10^3/uL; Basophil% 0.5 % (0-1); Eosinophil# 0.11 X10^3/uL; Eosinophils% 1.4 % (0-5); Hematocrit 48.5 % (40-54); Hemoglobin 15.5 g/dL (13.0-16.5); Lymphocyte # 0.98 X10^3/ul (0.83-4.51); Lymphocyte % 12.2 % (19-41); Mean Corpuscular Hgb 27.5 pg (27.0-32.0); Mean Corpuscular Volume 86.1 fL (80-94); Mean Platelet Vol. 10.6 fl (6.2-12.0); Monocyte# 0.42 X10^3/uL; Monocyte% 5.2 % (0-10); NRBC Flagged by Analyzer 0 % (0-5); Neutrophil # 6.41 X10^3/uL (2.7-7.7); Neutrophil % 80.1 % (47-70); Platelet Count 238 K/mm3 (150-450); RBC Distribution Width CV 13.7 % (11.6-14.6); RBC Distribution Width SD 43.1 fl (35.1-43.9); Red Blood Count 5.63 M/mm3 (4.6-6.2)
[2021-04-27 12:59] LABS: Hemoglobin A1c 6.1 % (3.8-5.6)
[2021-04-27 13:11] LABS: AST(SGOT) 12 U/L (15-37); Alanine Aminotransfer ALT/SGPT 16 U/L (16-61); Albumin, Serum 3.7 g/dL (3.2-5.0); Alkaline Phosphatase 128 U/L (45-117); Anion Gap 7 (5-15); BUN 19 mg/dL (7-18); BUN/Creat Ratio 21.8 RATIO (10-20); Chloride 102 mmol/L (98-107); Cholesterol 149 mg/dL (200); Creatinine, Serum 0.87 mg/dL (0.70-1.30); EST Glomerular Filtration Rate 98 mL/min (>60); Est Glom Filt Rate - Afr Amer 118 mL/min (>60); Globulin 3.8 g/dL (2.2-4.2); Glucose 114 mg/dL (74-106); High Density Lipoprotein 42 mg/dL; Potassium 4.2 mmol/L (3.5-5.1); Protein, Total 7.5 g/dL (6.4-8.2); Sodium Level 136 mmol/L (136-145); T4 Free Direct 0.98 ng/dL (0.76-1.46); Thyroid Stim Hormone (TSH) 3.82 uIU/mL (0.358-3.74); Triglycerides 108 mg/dL; Very Low Density Lipoprotein 22 mg/dL (5-40)
== END ==
PROVIDERS: PCP Family Medicine; Referring Provider Family Medicine; Visit Provider Family Medicine
DX: I25.10 Atherosclerotic heart disease of native coronary artery without angina pectoris (principal); E11.65 Type 2 diabetes mellitus with hyperglycemia; E06.3 Autoimmune thyroiditis; E78.5 Hyperlipidemia, unspecified
CPT/HCPCS: 36415; 80053; 80061; 83036; 84439; 84443; 85025

== ENCOUNTER → 2021-05-31 07:11 | Outpatient (CLI) | payer OTHER, SELFPAY ==
[2020-01-06 08:49] VITALS: BMI 43.7
--- NOTE | 2021-05-31 07:23 | MRI_ITS ---
STUDY: MRI BRAIN WITH AND WITHOUT CONTRAST REASON FOR EXAM: Male, 50 years old. DISTURBANCE OF SENSATION OF SMELL AND TASTE TECHNIQUE: Standardized multiplanar fat and water weighted pulse sequences were obtained. 27ML iv DOTAREM was administered for the contrast portion of the examination. COMPARISON: None. FINDINGS: Normal size of the ventricles and extra-axial spaces for the patient''s age. Normal white matter tracts of the supratentorial brain. Normal bilateral basal ganglia. Normal thalami. There is no extra-axial fluid accumulation. Normal flow voids within the major intracranial circulation suggesting patency by spin echo criteria. Normal venous enhancement. There is no enhancing intra-axial or extra-axial abnormality. Normal sella turcica, pituitary gland, infundibular stalk, optic chiasm and hypothalamus. Normal tectal plate and pineal gland. Normal midbrain, nic and medulla. Normal cerebellum. Normal basal cisterns. Normal bilateral temporal bones. Normal bilateral internal auditory canals. No demonstrated orbital abnormality, within the constraints of a routine brain study. Moderate mucosal thickening of left maxillary sinus and right sphenoid sinus. Minor mucosal thickening of the ethmoid sinuses. Normal calvarium and skull base. Normal visualized soft tissue structures. Normal visualized upper cervical spine. MRI/Brain W/WO Contrast IMPRESSION: Normal unenhanced and enhanced MRI of the brain. Left maxillary bilateral ethmoid and right sphenoid sinusitis Electronically Signed: Sean Trivedi MD at 17:36 EDT , Service support ,
== END ==
PROVIDERS: PCP Family Medicine; Referring Provider Family Medicine; Visit Provider Family Medicine
DX: R43.9 Unspecified disturbances of smell and taste (principal)
CPT/HCPCS: 70553; A9575

== ENCOUNTER → 2021-07-09 | Outpatient (CLI) | payer OTHER, SELFPAY | END | disposition home or self-care (01) | LOC: LABSPEC 17:49 | PROVIDERS: Visit Provider Podiatrist Foot & Ankle Surgery | DX: L02.612 Cutaneous abscess of left foot (principal) | CPT/HCPCS: 87070; 87077; 87186; 87205; 87640 ==

== ENCOUNTER → 2021-07-09 | Outpatient (CLI) | payer OTHER, SELFPAY | END | disposition home or self-care (01) | LOC: LABSPEC 07-10 10:56 | PROVIDERS: PCP Family Medicine; Referring Provider Podiatrist Foot & Ankle Surgery; Visit Provider Podiatrist Foot & Ankle Surgery | DX: L02.612 Cutaneous abscess of left foot (principal) ==

== ENCOUNTER → 2021-07-28 08:36 | Outpatient (CLI) | payer OTHER, SELFPAY ==
[2021-07-28 10:12] LABS: Absolute Lymphocyte Count 1.01 X10^3/uL (0.83-4.51); Absolute Neutrophil Count 6.5 X10^3/uL (2.0-7.7); Basophil# 0.03 X10^3/uL; Basophil% 0.4 % (0-1); Eosinophil# 0.12 X10^3/uL; Eosinophils% 1.5 % (0-5); Hematocrit 49.3 % (40-54); Hemoglobin 15.9 g/dL (13.0-16.5); Lymphocyte # 1.01 X10^3/ul (0.83-4.51); Lymphocyte % 12.4 % (19-41); Mean Corp Hgb Conc 32.3 g/dL (32-36); Mean Corpuscular Hgb 27.7 pg (27.0-32.0); Mean Corpuscular Volume 85.9 fL (80-94); Mean Platelet Vol. 10.8 fl (6.2-12.0); Monocyte# 0.44 X10^3/uL; Monocyte% 5.4 % (0-10); NRBC Flagged by Analyzer 0 % (0-5); Neutrophil # 6.48 X10^3/uL (2.7-7.7); Neutrophil % 79.7 % (47-70); Platelet Count 244 K/mm3 (150-450); RBC Distribution Width CV 14.1 % (11.6-14.6); RBC Distribution Width SD 44.6 fl (35.1-43.9); Red Blood Count 5.74 M/mm3 (4.6-6.2); White Blood Count 8.1 K/mm3 (4.4-11.0)
[2021-07-28 10:32] LABS: Hemoglobin A1c 6.1 % (3.8-5.6)
[2021-07-28 10:40] LABS: AST(SGOT) 9 U/L (15-37); Alanine Aminotransfer ALT/SGPT 15 U/L (16-61); Albumin, Serum 3.6 g/dL (3.2-5.0); Alkaline Phosphatase 102 U/L (45-117); Anion Gap 7 (5-15); BUN 21 mg/dL (7-18); BUN/Creat Ratio 27.1 RATIO (10-20); Calcium,Total 8.9 mg/dL (8.5-10.1); Chloride 106 mmol/L (98-107); Cholesterol 154 mg/dL (200); Creatinine, Serum 0.78 mg/dL (0.70-1.30); EST Glomerular Filtration Rate 112 mL/min (>60); Est Glom Filt Rate - Afr Amer 135 mL/min (>60); Globulin 3.7 g/dL (2.2-4.2); Glucose 136 mg/dL (74-106); High Density Lipoprotein 41 mg/dL; Potassium 4.2 mmol/L (3.5-5.1); Protein, Total 7.3 g/dL (6.4-8.2); Sodium Level 136 mmol/L (136-145); Thyroid Stim Hormone (TSH) 5.71 uIU/mL (0.358-3.74); Triglycerides 154 mg/dL; Very Low Density Lipoprotein 31 mg/dL (5-40)
== END ==
PROVIDERS: PCP Family Medicine; Referring Provider Family Medicine; Visit Provider Family Medicine
DX: E11.65 Type 2 diabetes mellitus with hyperglycemia (principal); E06.3 Autoimmune thyroiditis; E78.5 Hyperlipidemia, unspecified; Z20.822 Contact with and (suspected) exposure to COVID-19
CPT/HCPCS: 36415; 80053; 80061; 83036; 84439; 84443; 85025

== ENCOUNTER 2021-11-30 09:01 | Outpatient (CLI) | payer OTHER, SELFPAY ==
[2021-11-30 10:02] LABS: Absolute Lymphocyte Count 0.79 X10^3/uL (0.83-4.51); Absolute Neutrophil Count 4.1 X10^3/uL (2.0-7.7); Basophil# 0.02 X10^3/uL; Basophil% 0.3 % (0-1); Eosinophil# 0.07 X10^3/uL; Eosinophils% 1.2 % (0-5); Hematocrit 48.4 % (40-54); Hemoglobin 15.6 g/dL (13.0-16.5); Lymphocyte # 0.79 X10^3/ul (0.83-4.51); Lymphocyte % 13.6 % (19-41); Mean Corp Hgb Conc 32.2 g/dL (32-36); Mean Corpuscular Hgb 28.4 pg (27.0-32.0); Mean Corpuscular Volume 88.2 fL (80-94); Mean Platelet Vol. 10.8 fl (6.2-12.0); Monocyte# 0.79 X10^3/uL; Monocyte% 13.6 % (0-10); NRBC Flagged by Analyzer 0 % (0-5); Neutrophil # 4.12 X10^3/uL (2.7-7.7); Neutrophil % 70.6 % (47-70); Platelet Count 181 K/mm3 (150-450); RBC Distribution Width CV 13.6 % (11.6-14.6); RBC Distribution Width SD 44.1 fl (35.1-43.9); Red Blood Count 5.49 M/mm3 (4.6-6.2); White Blood Count 5.8 K/mm3 (4.4-11.0)
[2021-11-30 10:37] LABS: ALB/GLOB Ratio 0.9 RATIO (0.9-2.4); AST(SGOT) 8 U/L (15-37); Alanine Aminotransfer ALT/SGPT 13 U/L (16-61); Albumin, Serum 3.4 g/dL (3.2-5.0); Alkaline Phosphatase 92 U/L (45-117); Anion Gap 6 (5-15); BUN 15 mg/dL (7-18); BUN/Creat Ratio 17.8 RATIO (10-20); Calcium,Total 8.3 mg/dL (8.5-10.1); Chloride 109 mmol/L (98-107); Cholesterol 146 mg/dL (200); Creatinine, Serum 0.84 mg/dL (0.70-1.30); EST Glomerular Filtration Rate 101 mL/min (>60); Est Glom Filt Rate - Afr Amer 122 mL/min (>60); Globulin 3.8 g/dL (2.2-4.2); Glucose 125 mg/dL (74-106); High Density Lipoprotein 43 mg/dL; Protein, Total 7.2 g/dL (6.4-8.2); Sodium Level 140 mmol/L (136-145); T4 Free Direct 1.01 ng/dL (0.76-1.46); Thyroid Stim Hormone (TSH) 4.63 uIU/mL (0.358-3.74); Triglycerides 91 mg/dL; Very Low Density Lipoprotein 18 mg/dL (5-40)
[2021-11-30 14:27] LABS: Hemoglobin A1c 6.1 % (3.8-5.6)
== END 2021-11-30 23:59 | disposition short-term general hospital (02) ==
PROVIDERS: PCP Family Medicine; Referring Provider Family Medicine; Visit Provider Family Medicine
DX: E11.65 Type 2 diabetes mellitus with hyperglycemia (principal); E06.3 Autoimmune thyroiditis; B34.9 Viral infection, unspecified
CPT/HCPCS: 36415; 80053; 80061; 83036; 84439; 84443; 85025; 87635; U0003; U0005

== ENCOUNTER → 2022-03-03 | Outpatient (CLI) | payer OTHER, SELFPAY ==
[2022-03-03 09:56] LABS: Absolute Lymphocyte Count 0.97 X10^3/uL (0.83-4.51); Absolute Neutrophil Count 4.8 X10^3/uL (2.0-7.7); Basophil# 0.04 X10^3/uL; Basophil% 0.6 % (0-1); Eosinophil# 0.13 X10^3/uL; Hematocrit 47.5 % (40-54); Hemoglobin 15.9 g/dL (13.0-16.5); Lymphocyte # 0.97 X10^3/ul (0.83-4.51); Lymphocyte % 15.1 % (19-41); Mean Corp Hgb Conc 33.5 g/dL (32-36); Mean Corpuscular Hgb 28.5 pg (27.0-32.0); Mean Corpuscular Volume 85.1 fL (80-94); Mean Platelet Vol. 10.2 fl (6.2-12.0); Monocyte# 0.41 X10^3/uL; Monocyte% 6.4 % (0-10); NRBC Flagged by Analyzer 0 % (0-5); Neutrophil # 4.84 X10^3/uL (2.7-7.7); Neutrophil % 75.3 % (47-70); Platelet Count 200 K/mm3 (150-450); RBC Distribution Width CV 13.7 % (11.6-14.6); RBC Distribution Width SD 42.5 fl (35.1-43.9); Red Blood Count 5.58 M/mm3 (4.6-6.2); White Blood Count 6.4 K/mm3 (4.4-11.0)
[2022-03-03 10:29] LABS: ALB/GLOB Ratio 1.1 RATIO (0.9-2.4); AST(SGOT) 12 U/L (15-37); Alanine Aminotransfer ALT/SGPT 16 U/L (16-61); Albumin, Serum 3.8 g/dL (3.2-5.0); Alkaline Phosphatase 100 U/L (45-117); Anion Gap 7 (5-15); BUN 23 mg/dL (7-18); BUN/Creat Ratio 27.8 RATIO (10-20); Calcium,Total 9.3 mg/dL (8.5-10.1); Chloride 106 mmol/L (98-107); Cholesterol 157 mg/dL (200); Creatinine, Serum 0.83 mg/dL (0.70-1.30); EST Glomerular Filtration Rate 104 mL/min (>60); Est Glom Filt Rate - Afr Amer 125 mL/min (>60); Globulin 3.6 g/dL (2.2-4.2); Glucose 157 mg/dL (74-106); High Density Lipoprotein 39 mg/dL; Potassium 4.2 mmol/L (3.5-5.1); Protein, Total 7.4 g/dL (6.4-8.2); Sodium Level 136 mmol/L (136-145); T4 Free Direct 1.06 ng/dL (0.76-1.46); Triglycerides 197 mg/dL; Very Low Density Lipoprotein 39 mg/dL (5-40)
[2022-03-03 10:30] LABS: Microalbumin,Random Urine 8.4 mg/L (NO RANGE EST.); Microalbumin:Creatinine Ratio 11.7 mg/g CRE (<30 mg/g CRE)
[2022-03-03 10:36] LABS: Hemoglobin A1c 6.7 % (3.8-5.6)
== END | disposition home or self-care (01) ==
LOC: MFPLAB 09:16
PROVIDERS: PCP Family Medicine; Referring Provider Family Medicine; Visit Provider Family Medicine
DX: E11.65 Type 2 diabetes mellitus with hyperglycemia (principal); E06.3 Autoimmune thyroiditis
CPT/HCPCS: 36415; 80053; 80061; 82043; 82570; 83036; 84439; 84443; 85025

== ENCOUNTER 2022-04-20 17:19 | Emergency (ER) | payer OTHER, SELFPAY ==
[2022-04-20 17:20] VITALS: BP 139/96; PULSE 97; RESP 16; TEMP 36.2; O2SAT 100; BMI 40.1
--- NOTE | 2022-04-20 17:24 | RAD_ITS ---
STUDY: XR Shoulder Min 2 Views REASON FOR EXAM: Male, 51 years old. pt stated pain in shoulder joint after getting up off of the floor yesterday TECHNIQUE: XR Shoulder Min 2 Views LEFT COMPARISON: None. FINDINGS: Normal glenohumeral articulation. Normal acromioclavicular joint. Normal acromion. Normal humeral head and visualized proximal humerus. The soft tissue structures are unremarkable. Normal visualized pulmonary apex. RAD/Shoulder min 2 Views IMPRESSION: There are no acute findings of the shoulder. Electronically Signed: Jose Omalley MD at 17:59 EDT ,
--- NOTE | 2022-04-20 19:02 | EDS_ITS ---
HPI History of Present Illness Chief Complaint: Upper Extremity Injury Narrative Narrative: 51-year-old male presenting with left shoulder pain. He states he was trying to push himself up at the floor yesterday and felt sharp pain in the left anterior shoulder. He denies any pops or clicks. He states that now he is having difficulty moving his shoulder. The pain now radiates to the posterior aspect of the shoulder. No direct trauma. No numbness or tingling. He states he called Dr. Pandya's office who directed him to come to the emergency room. [facility] Medical History Abdominal pain Acid reflux Arthritis Blood in stool Cephalalgia Constipation Diarrhea Essential hypertension Fatigue RIAN (generalized anxiety disorder) Hemorrhoids History of heart attack Hyperlipemia Hypertension Hypogonadism in male Hypothyroidism Morbid obesity Nausea LUIS on CPAP Palpitations Peptic ulcer SOB (shortness of breath) Thyroid disease Type 2 diabetes mellitus without complication Ulcer Home Medications nitroglycerin 0.4 mg sublingual tablet 0.4 mg sublingual Q5-15M PRN Cardiac/Chest Pain 06/03/19 [History Last Taken Unknown] rosuvastatin 5 mg tablet 5 mg PO DAILY 07/30/19 [History Last Taken Unknown] insulin glargine 100 unit/mL (3 mL) subcutaneous pen 45 unit subcut DAILY 09/18/19 [History Last Taken Unknown] insulin lispro 100 unit/mL subcutaneous pen (Humalog KwikPen (U-100) Insulin) 10 unit subcut QAC 09/18/19 [History Last Taken Unknown] gabapentin 300 mg capsule 300 mg PO TID 12/25/19 [History Last Taken Unknown] docusate sodium 50 mg capsule (Colace Clear) 50 mg PO DAILY 01/06/20 [History Last Taken Unknown] empagliflozin 25 mg tablet (Jardiance) 25 mg PO DAILY 01/06/20 [History Last Taken Unknown] fluticasone propionate 50 mcg/actuation nasal spray,suspension 1 spray intranasal DAILY 01/06/20 [History Last Taken Unknown] hydrocortisone 2.5% Lidocaine 5% See Rx Instructions NJ DAILY 30 days #30 supp 01/06/20 [Rx Last Taken Unknown] metformin 500 mg tablet,extended release 24 hr 500 mg PO BID 01/06/20 [History Last Taken Unknown] hydrocodone-acetaminophen 5-325mg 5mg-325mg 1 tab PO Q6H PRN pain 3 days #10 tabs 04/20/22 [Rx Last Taken Unknown] Allergy/AdvReac Type Severity Reaction Status Date / Time latex Allergy Severe Unknown Verified 04/20/22 18:03 aspirin Allergy Vomiting Verified 04/20/22 18:03 NSAIDS (Non-Steroidal Allergy Nausea Verified 04/20/22 18:03 Anti-Inflamma procaine [From Novocain] Allergy Unknown Verified 04/20/22 18:03 adhesive tape AdvReac Rash Verified 04/20/22 18:03 Family History Mother Heart disease Hypertension Kidney disease Cancer skin Asthma Arthritis Myocardial infarction Diabetes CVA (cerebral vascular accident) Thyroid disorder Bleeding disorder Father Hypertension Chronic mental illness Surgical History History of bilateral inguinal hernia repair History of colonoscopy History of ear surgery History of hand surgery History of knee surgery History of loop recorder (09/27/19) Social History Smoking Status: Unknown if ever smoked alcohol intake: current alcohol intake frequency: holidays/special occasions only Alcohol type: beer substance use type: does not use caffeine: Yes Type: coffee Number of servings: 1 what type of physical activity do you participate in: none frequency: does not exercise ROS ROS ED Constitutional Constitutional ED: Denies chills, fever(s) or sweats Eyes Eyes: Denies blurry vision or change in vision ENT ENT ED: Denies ear pain or sore throat Cardiovascular Cardiovascular: Denies chest pain, palpitations or racing heartbeat Respiratory/Chest Respiratory/Chest: Denies cough, dyspnea or sputum Gastrointestinal Gastrointestinal: Denies abdominal pain, constipation, diarrhea, nausea or vomiting Genitourinary Genitourinary ED: Denies dysuria, hematuria or urinary frequency Musculoskeletal Musculoskeletal: Reports arthralgias and other Details: Left shoulder pain ; Denies neck pain Integumentary Denies abscess, Abrasions or rash Neurologic Neurologic: Denies headache(s), paresthesias or weakness Psychiatric Psychiatric: Denies anxiety, depression, suicidal ideation or suicidal thoughts Endocrine Endocrinology: Denies polydipsia or polyuria EXAM Physical Exam Const Vital Signs: 04/20/22 17:20 Temperature 97.2 F L Temperature Source Temporal Pulse Rate 97 Respiratory Rate 16 Blood Pressure 139/96 H Blood Pressure Mean 110 Pulse Ox 100 Oxygen Delivery Method Room Air Positive well nourished General Appearance ED: NAD HEENT Reports moist mucous membranes normocephalic and atraumatic Eyes PERRL Neck full ROM General: Negative for tenderness Chest Wall inspection of chest normal and palpation of chest normal Resp normal respiratory effort Extremity Extremity Narrative: Tenderness to palpation over the anterior and posterior aspect of the shoulder girdle. There is no tenderness over the deltoid. Range of motion is slow but's and somewhat limited but is nearly full. Patient having difficulty abducting his arm secondary to pain. Neuro oriented x3 and CN's II-XII intact bilaterally Sensorium / Orientation: alert Skin Lesions: no lesions Rashes: no rashes MDM MDM MDM Narrative Medical decision making narrative: 51-year-old male presenting with left shoulder pain. I did obtain an x-ray of the left shoulder and there is no acute fracture or subluxation on my interpretation. Patient is still having significant pain and it is possible he could have a rotator cuff injury however the mechanism was pushing himself off the floor is unclear. Patient does see pain management and is on Ultram currently. Pain management did refer him to the ER. He was given [place] here in the ER. I will supply with a small supply of [place] until he can get to his office visit tomorrow. Patient minimal this plan. Patient was given orthopedic follow-up as well. Impression: 1. Left shoulder strain Lab Data Attestation: I reviewed the patient's lab results. Radiography Diagnostic Testing: Clinical Impression(s) from Imaging Studies Shoulder X-Ray 04/20/22 17:24 IMPRESSION: There are no acute findings of the shoulder. Electronically Signed: Jose Omalley MD at 17:59 EDT , Discharge Plan Triage Chief Complaint: Upper Extremity Injury ED Provider: Jeffrey Aguirre Dx/Rx/DC Orders Instructions: ED Shoulder Sprain Prescriptions: New hydrocodone-acetaminophen 5-325 mg tablet 1 tab PO Q6H PRN (Reason: pain) 3 Days Qty: 10 0RF No Action nitroglycerin 0.4 mg tablet, sublingual 0.4 mg SUBLINGUAL Q5-15M PRN (Reason: Cardiac/Chest Pain) metformin 500 mg tablet extended release 24 hr 500 mg PO BID rosuvastatin 5 mg tablet 5 mg PO DAILY insulin glargine 100 unit/mL (3 mL) insulin pen 45 unit SC DAILY insulin lispro [Humalog KwikPen Insulin] 100 unit/mL insulin pen 10 unit SC QAC gabapentin 300 mg capsule 300 mg PO TID Label Comments: TAKE 1 CAPSULE THREE TIMES DAILY fluticasone propionate 50 mcg/actuation spray,suspension 1 spray INTRANASAL DAILY Rx Instructions: administer into each nostril Jardiance 25 mg tablet 25 mg PO DAILY Colace Clear 50 mg capsule 50 mg PO DAILY hydrocortisone 2.5% Lidocaine 5% See Rx Instructions RC DAILY 30 Days Qty: 30 1RF Rx Instructions: 1 suppositories NJ daily; Primary Care Provider: Cb Rodriguez Referrals: Todd Valencia DO [STAFF PHYSICIAN] - As soon as possible Cb Rodriguez MD [Primary Care Provider] - Disposition Disposition: Home, Self Care
[2022-04-20] MEDS: HYDROcodone Bitartrate/Apap 5/325 Tablet PO (19:18)
== END 2022-04-20 19:21 | disposition home or self-care (01) ==
PROVIDERS: Emergency Provider Student in an Organized Health Care Education/Training Program; PCP Family Medicine; Visit Provider Student in an Organized Health Care Education/Training Program
DX: S46.912A Strain of unspecified muscle, fascia and tendon at shoulder and upper arm level, left arm, initial encounter (principal); E11.9 Type 2 diabetes mellitus without complications; E78.5 Hyperlipidemia, unspecified; I10 Essential (primary) hypertension; X50.9XXA Other and unspecified overexertion or strenuous movements or postures, initial encounter
CPT/HCPCS: 73030; 99283

== ENCOUNTER → 2022-06-03 | Outpatient (CLI) | payer OTHER, SELFPAY ==
[2022-06-03 10:05] LABS: Absolute Lymphocyte Count 0.71 X10^3/uL (0.83-4.51); Absolute Neutrophil Count 5.3 X10^3/uL (2.0-7.7); Basophil# 0.04 X10^3/uL; Basophil% 0.6 % (0-1); Eosinophil# 0.13 X10^3/uL; Hematocrit 47.2 % (40-54); Hemoglobin 15.7 g/dL (13.0-16.5); Lymphocyte # 0.71 X10^3/ul (0.83-4.51); Lymphocyte % 10.7 % (19-41); Mean Corp Hgb Conc 33.3 g/dL (32-36); Mean Corpuscular Hgb 29.5 pg (27.0-32.0); Mean Corpuscular Volume 88.6 fL (80-94); Mean Platelet Vol. 10.6 fl (6.2-12.0); Monocyte# 0.44 X10^3/uL; Monocyte% 6.6 % (0-10); NRBC Flagged by Analyzer 0 % (0-5); Neutrophil # 5.28 X10^3/uL (2.7-7.7); Neutrophil % 79.5 % (47-70); Platelet Count 185 K/mm3 (150-450); RBC Distribution Width CV 13.3 % (11.6-14.6); RBC Distribution Width SD 43.1 fl (35.1-43.9); Red Blood Count 5.33 M/mm3 (4.6-6.2); White Blood Count 6.6 K/mm3 (4.4-11.0)
[2022-06-03 10:33] LABS: Hemoglobin A1c 6.8 % (3.8-5.6)
[2022-06-03 10:37] LABS: Microalbumin,Random Urine 9.5 mg/L (NO RANGE EST.); Microalbumin:Creatinine Ratio 9.4 mg/g CRE (<30 mg/g CRE)
[2022-06-03 10:49] LABS: ALB/GLOB Ratio 1.2 RATIO (0.9-2.4); AST(SGOT) 10 U/L (15-37); Alanine Aminotransfer ALT/SGPT 13 U/L (16-61); Albumin, Serum 3.6 g/dL (3.2-5.0); Alkaline Phosphatase 94 U/L (45-117); Anion Gap 6 (5-15); BUN 17 mg/dL (7-18); BUN/Creat Ratio 17.1 RATIO (10-20); Chloride 104 mmol/L (98-107); Cholesterol 168 mg/dL (200); EST Glomerular Filtration Rate 83 mL/min (>60); Est Glom Filt Rate - Afr Amer 101 mL/min (>60); Globulin 3.1 g/dL (2.2-4.2); Glucose 184 mg/dL (74-106); High Density Lipoprotein 38 mg/dL; Potassium 4.1 mmol/L (3.5-5.1); Protein, Total 6.7 g/dL (6.4-8.2); Sodium Level 137 mmol/L (136-145); T4 Free Direct 1.05 ng/dL (0.76-1.46); Thyroid Stim Hormone (TSH) 6.08 uIU/mL (0.358-3.74); Triglycerides 250 mg/dL; Very Low Density Lipoprotein 50 mg/dL (5-40)
== END | disposition home or self-care (01) ==
LOC: MFPLAB 09:00
PROVIDERS: PCP Family Medicine; Referring Provider Family Medicine; Visit Provider Family Medicine
DX: G47.33 Obstructive sleep apnea (adult) (pediatric) (principal); E11.9 Type 2 diabetes mellitus without complications; E06.3 Autoimmune thyroiditis
CPT/HCPCS: 36415; 80053; 80061; 82043; 82570; 83036; 84439; 84443; 85025

== ENCOUNTER 2022-08-05 07:57 | Day surgery (SDC) | payer OTHER, SELFPAY ==
[2022-08-05] VITALS (13 sets, daily range): BP systolic 129–160; BP diastolic 68–97; PULSE 73–88; RESP 16–22; TEMP 35.8–36.6; O2SAT 83–99; BMI 40.4
--- NOTE | 2022-08-05 08:40 | RAD_ITS ---
INDICATION: INSERTION, SPINAL CORD STIMULATOR EXAMINATION/TECHNIQUE: X-RAY - intraoperative fluoroscopic images. COMPARISON: Lumbar spine x-rays 01/16/2021 FINDINGS: Coned-down, dorsal views of the thoracic spine show neurostimulator wires projecting over the central spinal canal of the thoracic spine. RAD/Lumbar Spine 2 or 3 Views IMPRESSION: Intraoperative images for spinal cord stimulator. Please correlate with surgical report. Electronically Signed: Seng Spivey DO at 21:07 EDT ,
[2022-08-05] MEDS: Lactated Ringers 1,000 ML 15 ML IV ×2 (09:01→11:00)
[2022-08-05 09:55] LABS: Bedside Glucose 182 mg/dL (74-106)
[2022-08-05] MEDS: Cefazolin 2 GM in 0.9% Normal Saline 100 ML IV (09:55)
[2022-08-05] MEDS: Lidocaine 1% /Epi 1:100 (20ml) 20 ML Vial (11:00)
[2022-08-05 12:16] LABS: Bedside Glucose 236 mg/dL (74-106)
[2022-08-05] MEDS: Ipratropium/Albuterol Sulfate 3 ML AMPUL.NEB INHALATION (12:57)
--- NOTE | 2022-08-05 13:21 | RAD_ITS ---
STUDY: X-RAY CHEST REASON FOR EXAM: Male, 51 years old. SOB POST GENERAL ANESTHESIA -- SPINAL CORD STIM IMPLANT TODAY TECHNIQUE: Single AP portable view of the chest. COMPARISON: Comparison is made with prior chest radiograph dated 12/23/2018. FINDINGS: EKG electrodes are seen. Electrodes from a spinal cord stimulator device are seen at the T8 level. There is evidence of a blunting of the left costophrenic angle with left basilar atelectasis. There is no demonstrated pleural abnormality. Normal size heart. A loop recorder device is seen overlying the left cardiac border. Normal mediastinum and meet. Normal visualized pulmonary arteries. Normal visualized aortic arch and descending thoracic aorta. Normal visualized thoracic spine. Normal visualized ribs, clavicles, and shoulders. There is no demonstrated abnormality of the visualized soft tissue structures of the upper abdomen. RAD/Chest 1 View (Portable) IMPRESSION: Blunting of the left angle with findings suggestive of left basilar atelectasis. Electronically Signed: Master Hunter MD at 14:02 EDT ,
--- NOTE | 2022-08-05 15:29 | SUR.PHASEII ---
PT ASSESSED BY ANESTHESIA DUE TO FLAT AFFECT.
--- NOTE | 2022-08-05 15:30 | SUR.PHASEII ---
151 DR BECERRA SPOKE WITH PT. PT NEURO CHECK WNL.
== END 2022-08-05 15:33 | disposition home or self-care (01) ==
LOC: SDC 07:58 → AC 08:01
PROVIDERS: PCP Family Medicine; Referring Provider Anesthesiology Pain Medicine; Visit Provider Anesthesiology Pain Medicine
PROC: (CPT 63685; principal; 2022-08-05 09:25)
DX: M47.816 Spondylosis without myelopathy or radiculopathy, lumbar region (principal); E11.40 Type 2 diabetes mellitus with diabetic neuropathy, unspecified; E66.01 Morbid (severe) obesity due to excess calories; Z68.41 Body mass index [BMI] 40.0-44.9, adult; Z79.4 Long term (current) use of insulin; G89.4 Chronic pain syndrome; M51.36 Other intervertebral disc degeneration, lumbar region; M51.37 Other intervertebral disc degeneration, lumbosacral region; I25.10 Atherosclerotic heart disease of native coronary artery without angina pectoris; E78.5 Hyperlipidemia, unspecified; E06.3 Autoimmune thyroiditis; F41.1 Generalized anxiety disorder; G47.33 Obstructive sleep apnea (adult) (pediatric); E29.1 Testicular hypofunction; I25.2 Old myocardial infarction; Z79.899 Other long term (current) drug therapy; Z79.84 Long term (current) use of oral hypoglycemic drugs
CPT/HCPCS: 63685; 71045; 72100; 76000; 82962; 94640; C1778; C1820; J7120; J2405

== ENCOUNTER 2022-10-13 09:00 | Outpatient (RCR) | payer OTHER, SELFPAY ==
--- NOTE | 2022-09-09 11:01 | HP.PTEVAL_ITS ---
Patient's Visit Information JONEL MINOR Sr. is a 51 year old M referred to Physical Therapy by Dr. Todd Valencia DO with a diagnosis of Left Shoulder. Date of Evaluation: 09/09/22 Physical Therapist: Amy Cast DPT - Visit Plan Frequency: 2x /Week Duration: 4 Weeks Plan: Focus on ROM and scapular strength/stabilization. HEP Given IE: Wall Wash and Flexion Table Walk Away - Subjective Patient reports that his left shoulder has been bothering him since April- he was on the floor with his dog and his phone went off he went to grab his phone and felt a pop. 3 days later couldn't move it at all- went to the ER. They took x- rays and gave him meds and sent him home. Saw pain mgmt the next day Dr. Pandya for his regular visit- he did an injection- took the pain away and gave it time to heal. The injection helped take the pain away and he had great motion. Then it wore off but he had a back surgery (spinal stimulator)- then sent him to ortho. Dr. Taylor gave him two injections- and the shots did not do anything to improve the motion or the pain. He right hand dominate. Pain is located in the anterior shoulder- radiates to the elbow- no pain that radiates to the cervical spine. Describes the pain as horrible . Does have N/T in the fingers. Worst: 10/10 Agg: movement Eases: sitting still and not moving. Best: 3/10. Sleep: wakes him up- normally a side sleeper. No MRI at this time- x-ray shows a slight calcification. 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 Gait: good arm swing and rotation. Palpation: tender along bicipital groove. ROM: Cervical: WFL, Shoulder: AROM: Flexion: 90 degrees, Abd: 50 degrees, IR: belt line, ER: 30 degrees all with pain, PROM: guarding- AAROM: Flexion: 120 degrees. Strength: Scap: fair minus, Shoulder: 4-/5 with pain in all directions tested at neutral, Elbow: 4+/5 with discomfort, Wrist: 5/5 Medical Psychotherapist:Medical Psychotherapist: Left: 60/60/80 Right: 80/80/80 - Balance/Special Test Scores Quick DASH Score: [phone] - Goals Goal 1:: Patient will be I with HEP and progression Goal Time Frame: 4-6 Weeks Goal 2:: Patient will demo full AROM of the left shoulder Goal Time Frame: 4-6 Weeks Goal 3:: Patient will maintain proper posture t/o tx session to demo increased scap s/s Goal Time Frame: 4-6 Weeks Goal 4:: Patient will report 80% improvement Goal Time Frame: 4-6 Weeks - Rehabilitation Potential Physical Therapy Diagnosis: Patient presents with hypomobility- he has decreased ROM, scapular s/s and muscular endurance leading to poor posture and decreased ability to perform ADL's Rehabilitation Potential: Good - Anticipated Interventions Patient/Client Instruction: Educate patient on: Benefits of Fitness Program Therapeutic Exercise to Include: Strength training, Endurance training, Coordination, Agility training, Body mechanics, Postural training, Flexibilty training, Gait and locomotor training, Neuromotor development, Dynamic Lumbar Stabilization, Scapular Strength/Stabilization TENS: No Cryotherapy (ice pack, ice massage): Yes Thermo therapy (hot pack): Yes Ultrasound (thermal/non thermal): No Thank you for the opportunity to evaluate your patient. For Medicare and Medicare HMO plans, please review the plan of care and approve it. It will need to be FAXED BACK to us at [phone] for Medicare purposes. For Medicare only, by signing this I certify the plan of care. Please let me know if there are questions or concerns regarding this plan of care. Physician Signature: Date:
--- NOTE | 2022-10-13 09:50 | HP.PTDCSUM ---
It has been my pleasure to treat JONEL MINOR Sr. referred by Dr. Todd Valencia DO, with the diagnosis of Left Shoulder for a total of 9 visit(s). Discharge Date: Please see the following information for a summary of their discharge status. Subjective: Patient reports that his shoulder is okay, he still has a little bit of pain during therapy sessions with strengthening. He is able to use it more after a few sessions in PT. Pain is in the joint when he gets it. Shoulder Pain Intensity (Out of 10): 0 % Improvement: 90 Objective/Function: Posture: fair throughout Gait: good arm swing and rotation. Palpation: tender along bicipital groove. ROM: Cervical: WFL, Shoulder: WFL in all planes- inc discomfort at end range abd Strength: Scap: fair, Shoulder: 4+/5 no pain, Elbow: 5/5, Wrist: 5/5 Goal 1:: Patient will be I with HEP and progression Goal Progress: Goal Met Goal 2:: Patient will demo full AROM of the left shoulder Goal Progress: Goal Met Goal 3:: Patient will maintain proper posture t/o tx session to demo increased scap s/s Goal Progress: Goal Met Goal 4:: Patient will report 80% improvement Goal Progress: Goal Met Plan: 10/13/22: Discharge to I HEP- gave bands for and print out of current ex. IE: Focus on ROM and scapular strength/stabilization. HEP Given IE: Wall Wash and Flexion Table Walk Away If there are questions or concerns regarding this patient's physical therapy, please feel free to call me at [phone]. Thank you for the referral of this patient. Sincerely, Amy Cast, DPT Balance/Gait/Functional tests - Balance/Special Test Scores Quick DASH Score: 9.0900
== END 2022-10-13 14:02 | disposition home or self-care (01) ==
LOC: PT 09:00
PROVIDERS: PCP Family Medicine; Referring Provider Orthopaedic Surgery; Visit Provider Orthopaedic Surgery
DX: M75.22 Bicipital tendinitis, left shoulder (principal); M75.42 Impingement syndrome of left shoulder
CPT/HCPCS: 97110; 97162; 97164

== ENCOUNTER 2022-10-28 09:43 | Outpatient (CLI) | payer OTHER, SELFPAY ==
[2022-10-28 10:27] LABS: Absolute Lymphocyte Count 0.68 X10^3/uL (0.83-4.51); Absolute Neutrophil Count 4.9 X10^3/uL (2.0-7.7); Basophil# 0.03 X10^3/uL; Basophil% 0.5 % (0-1); Eosinophil# 0.12 X10^3/uL; Hematocrit 45.8 % (40-54); Hemoglobin 15.2 g/dL (13.0-16.5); Lymphocyte # 0.68 X10^3/ul (0.83-4.51); Lymphocyte % 11.1 % (19-41); Mean Corp Hgb Conc 33.2 g/dL (32-36); Mean Corpuscular Hgb 29.1 pg (27.0-32.0); Mean Corpuscular Volume 87.7 fL (80-94); Mean Platelet Vol. 10.2 fl (6.2-12.0); Monocyte# 0.41 X10^3/uL; Monocyte% 6.7 % (0-10); NRBC Flagged by Analyzer 0 % (0-5); Neutrophil # 4.85 X10^3/uL (2.7-7.7); Neutrophil % 79.4 % (47-70); Platelet Count 186 K/mm3 (150-450); RBC Distribution Width CV 13.8 % (11.6-14.6); RBC Distribution Width SD 43.9 fl (35.1-43.9); Red Blood Count 5.22 M/mm3 (4.6-6.2); White Blood Count 6.1 K/mm3 (4.4-11.0)
[2022-10-28 10:45] LABS: Hemoglobin A1c 7.1 % (3.8-5.6)
[2022-10-28 10:56] LABS: ALB/GLOB Ratio 1.3 RATIO (0.9-2.4); AST(SGOT) 10 U/L (15-37); Alanine Aminotransfer ALT/SGPT 15 U/L (16-61); Albumin, Serum 3.6 g/dL (3.2-5.0); Alkaline Phosphatase 122 U/L (45-117); Anion Gap 4 (5-15); BUN 19 mg/dL (7-18); BUN/Creat Ratio 25.5 RATIO (10-20); Calcium,Total 8.7 mg/dL (8.5-10.1); Chloride 105 mmol/L (98-107); Cholesterol 220 mg/dL (200); Creatinine, Serum 0.74 mg/dL (0.70-1.30); EST Glomerular Filtration Rate 116 mL/min (>60); Est Glom Filt Rate - Afr Amer 141 mL/min (>60); Globulin 2.8 g/dL (2.2-4.2); Glucose 245 mg/dL (74-106); High Density Lipoprotein 42 mg/dL; Potassium 4.1 mmol/L (3.5-5.1); Protein, Total 6.4 g/dL (6.4-8.2); Sodium Level 138 mmol/L (136-145); T4 Free Direct 1.02 ng/dL (0.76-1.46); Thyroid Stim Hormone (TSH) 5.42 uIU/mL (0.358-3.74); Triglycerides 249 mg/dL; Very Low Density Lipoprotein 50 mg/dL (5-40)
[2022-10-28 12:52] LABS: Microalbumin,Random Urine 15.3 mg/L (NO RANGE EST.); Microalbumin:Creatinine Ratio 12.1 mg/g CRE (<30 mg/g CRE)
== END 2022-10-28 23:59 | disposition home or self-care (01) ==
LOC: MFPLAB 09:47
PROVIDERS: PCP Family Medicine; Referring Provider Family Medicine; Visit Provider Family Medicine
DX: E78.5 Hyperlipidemia, unspecified (principal); E11.9 Type 2 diabetes mellitus without complications; E06.3 Autoimmune thyroiditis
CPT/HCPCS: 36415; 80053; 80061; 82043; 82570; 83036; 84439; 84443; 85025

== ENCOUNTER → 2022-12-25 | Outpatient (CLI) | payer OTHER, SELFPAY ==
--- NOTE | 2022-12-25 07:37 | MRI_ITS ---
STUDY: MRI LEFT SHOULDER REASON FOR EXAM: Male, 52 years old. Other, PROXIMAL HUMERUS PAIN LATERALLY WHEN ABDUCTS ARM LATERALLY. INJURED PLAYING WITH DOG X COUPLE MONTHS AGO. XR LEFT SHOULDER 09/05/22 TECHNIQUE: Standardized fat and water weighted pulse sequences were obtained in all 3 orthogonal planes. COMPARISON: None. FINDINGS: There is supraspinatus tendinosis with mild tendon thickening and edema. There is also a small undersurface tear at the greater tuberosity insertion site of the supraspinatus tendon measuring 5.5 mm in diameter. A small glenohumeral joint effusion is also present. Normal infraspinatus tendon. Normal subscapularis tendon. Normal teres minor tendon. Normal supraspinatus muscle. Normal infraspinatus muscle. Normal subscapularis muscle. Normal teres minor muscle. Normal glenohumeral articulation. Normal humeral head and visualized proximal humerus. Normal biceps labral complex. Normal intracapsular long biceps tendon. There is labral degeneration with areas of fraying, but there is no demonstrated discrete labral tear. Normal capsulo- ligamentous complex. Normal rotator interval. Normal acromioclavicular articulation. There is a Type II morphology (curved), with a neutral orientation. There is no subacromial-subdeltoid bursal fluid. Normal visualized coracohumeral and coracoacromial ligaments. Normal quadrilateral space. Normal axillary space. Normal deltoid muscle. Normal trapezius muscle. MRI/Upper Ext Joint Only(Routine) IMPRESSION: 1. Small 5.5 mm undersurface tear of the supraspinatus tendon at the greater tuberosity insertion site in addition to more proximal tendinosis 2. Fraying of the glenoid labrum without a focal tear or detachment 3. Small glenohumeral joint effusion Electronically Signed: Trenton Browning MD at 15:46 EST Reading Location ID and State: [address] [place] [address] , Service support ,
== END | disposition home or self-care (01) ==
LOC: MRI 07:32
PROVIDERS: PCP Family Medicine; Referring Provider Orthopaedic Surgery; Visit Provider Orthopaedic Surgery
DX: S46.919A Strain of unspecified muscle, fascia and tendon at shoulder and upper arm level, unspecified arm, initial encounter (principal); X58.XXXA Exposure to other specified factors, initial encounter
CPT/HCPCS: 73221

== ENCOUNTER → 2023-01-20 | Outpatient (CLI) | payer OTHER, SELFPAY ==
[2023-01-20 12:20] LABS: Absolute Lymphocyte Count 1.09 X10^3/uL (0.83-4.51); Absolute Neutrophil Count 6.1 X10^3/uL (2.0-7.7); Basophil# 0.03 X10^3/uL; Basophil% 0.4 % (0-1); Eosinophil# 0.14 X10^3/uL; Eosinophils% 1.8 % (0-5); Hematocrit 49.6 % (40-54); Lymphocyte # 1.09 X10^3/ul (0.83-4.51); Lymphocyte % 13.7 % (19-41); Mean Corp Hgb Conc 32.3 g/dL (32-36); Mean Corpuscular Hgb 28.7 pg (27.0-32.0); Mean Corpuscular Volume 88.9 fL (80-94); Mean Platelet Vol. 10.9 fl (6.2-12.0); Monocyte% 7.5 % (0-10); NRBC Flagged by Analyzer 0 % (0-5); Neutrophil # 6.05 X10^3/uL (2.7-7.7); Neutrophil % 76.1 % (47-70); Platelet Count 223 K/mm3 (150-450); RBC Distribution Width CV 13.2 % (11.6-14.6); RBC Distribution Width SD 42.5 fl (35.1-43.9); Red Blood Count 5.58 M/mm3 (4.6-6.2)
[2023-01-20 12:47] LABS: Hemoglobin A1c 7.1 % (3.8-5.6)
[2023-01-20 12:51] LABS: Microalbumin:Creatinine Ratio 11.2 mg/g CRE (<30 mg/g CRE)
[2023-01-20 12:52] LABS: ALB/GLOB Ratio 1.1 RATIO (0.9-2.4); AST(SGOT) 15 U/L (15-37); Alanine Aminotransfer ALT/SGPT 17 U/L (16-61); Albumin, Serum 3.7 g/dL (3.2-5.0); Alkaline Phosphatase 113 U/L (45-117); Anion Gap 5 (5-15); BUN 19 mg/dL (7-18); BUN/Creat Ratio 22.6 RATIO (10-20); Calcium,Total 9.3 mg/dL (8.5-10.1); Chloride 105 mmol/L (98-107); Cholesterol 218 mg/dL (200); Creatinine, Serum 0.84 mg/dL (0.70-1.30); EST Glomerular Filtration Rate 101 mL/min (>60); Est Glom Filt Rate - Afr Amer 123 mL/min (>60); Globulin 3.4 g/dL (2.2-4.2); Glucose 151 mg/dL (74-106); High Density Lipoprotein 47 mg/dL; Potassium 4.3 mmol/L (3.5-5.1); Protein, Total 7.1 g/dL (6.4-8.2); Sodium Level 138 mmol/L (136-145); T4 Free Direct 0.99 ng/dL (0.76-1.46); Thyroid Stim Hormone (TSH) 7.55 uIU/mL (0.358-3.74); Triglycerides 194 mg/dL; Very Low Density Lipoprotein 39 mg/dL (5-40)
== END | disposition home or self-care (01) ==
LOC: MFPLAB 09:47
PROVIDERS: PCP Family Medicine; Referring Provider Family Medicine; Visit Provider Family Medicine
DX: E11.9 Type 2 diabetes mellitus without complications (principal); E06.3 Autoimmune thyroiditis
CPT/HCPCS: 36415; 80053; 80061; 82043; 82570; 83036; 84439; 84443; 85025

== ENCOUNTER → 2023-02-14 | Outpatient (CLI) | payer OTHER, SELFPAY ==
--- NOTE | 2023-02-14 10:13 | RAD_ITS ---
STUDY: X-RAY - THORACIC SPINE REASON FOR EXAM: Male, 52 years old. Mid back pain TECHNIQUE: 4 view(s) of the thoracic spine were obtained. COMPARISON: None. FINDINGS: Normal kyphosis of the thoracic spine. There is no substantial scoliosis. Normal thoracic vertebrae and endplates. Normal disc space heights. The soft tissue structures are unremarkable. RAD/Thoracic Spine 3 Views IMPRESSION: Normal x-ray examination of the thoracic spine. Electronically Signed: Juan Carlos Pérez MD at 11:19 EDT ,
--- NOTE | 2023-02-14 10:25 | RAD_ITS ---
STUDY: X-RAY - CERVICAL SPINE REASON FOR EXAM: Male, 52 years old. Neck pain and headaches TECHNIQUE: 3 view(s) of the cervical spine were obtained. COMPARISON: None FINDINGS: Normal anterior atlantoaxial articulation. Normal odontoid process. Normal cervical lordosis. Normal vertebral bodies and endplates. Normal disc space heights. Normal visualized intervertebral neuroforamina. The soft tissue structures are unremarkable. RAD/Cerv Spine 2 or 3 Views IMPRESSION: Normal x-ray examination of the visualized cervical spine. Electronically Signed: Juan Carlos Pérez MD at 11:14 EDT ,
== END | disposition home or self-care (01) ==
LOC: RAD 10:11
PROVIDERS: PCP Family Medicine; Referring Provider Anesthesiology Pain Medicine; Visit Provider Anesthesiology Pain Medicine
DX: M50.30 Other cervical disc degeneration, unspecified cervical region (principal); M51.34 Other intervertebral disc degeneration, thoracic region
CPT/HCPCS: 72040; 72072

== ENCOUNTER → 2023-03-31 | Outpatient (CLI) | payer OTHER, SELFPAY ==
[2023-03-31 17:31] LABS: Absolute Lymphocyte Count 0.94 X10^3/uL (0.83-4.51); Absolute Neutrophil Count 5.7 X10^3/uL (2.0-7.7); Basophil# 0.05 X10^3/uL; Basophil% 0.7 % (0-1); Eosinophil# 0.18 X10^3/uL; Eosinophils% 2.4 % (0-5); Hematocrit 48.1 % (40-54); Hemoglobin 15.3 g/dL (13.0-16.5); Lymphocyte # 0.94 X10^3/ul (0.83-4.51); Lymphocyte % 12.8 % (19-41); Mean Corp Hgb Conc 31.8 g/dL (32-36); Mean Corpuscular Hgb 27.9 pg (27.0-32.0); Mean Corpuscular Volume 87.8 fL (80-94); Monocyte# 0.51 X10^3/uL; Monocyte% 6.9 % (0-10); NRBC Flagged by Analyzer 0 % (0-5); Neutrophil # 5.65 X10^3/uL (2.7-7.7); Neutrophil % 76.8 % (47-70); Platelet Count 221 K/mm3 (150-450); RBC Distribution Width CV 13.5 % (11.6-14.6); RBC Distribution Width SD 43.3 fl (35.1-43.9); Red Blood Count 5.48 M/mm3 (4.6-6.2); White Blood Count 7.4 K/mm3 (4.4-11.0)
[2023-03-31 18:02] LABS: Hemoglobin A1c 6.5 % (3.8-5.6)
[2023-03-31 18:03] LABS: ALB/GLOB Ratio 1.1 RATIO (0.9-2.4); AST(SGOT) 14 U/L (15-37); Alanine Aminotransfer ALT/SGPT 14 U/L (16-61); Albumin, Serum 3.8 g/dL (3.2-5.0); Alkaline Phosphatase 107 U/L (45-117); Anion Gap 7 (5-15); BUN 19 mg/dL (7-18); BUN/Creat Ratio 15.6 RATIO (10-20); Chloride 103 mmol/L (98-107); Cholesterol 123 mg/dL (200); Creatinine, Serum 1.22 mg/dL (0.70-1.30); EST Glomerular Filtration Rate 66 mL/min (>60); Est Glom Filt Rate - Afr Amer 80 mL/min (>60); Globulin 3.5 g/dL (2.2-4.2); Glucose 149 mg/dL (74-106); High Density Lipoprotein 40 mg/dL; Potassium 4.6 mmol/L (3.5-5.1); Protein, Total 7.3 g/dL (6.4-8.2); Sodium Level 136 mmol/L (136-145); Triglycerides 153 mg/dL; Very Low Density Lipoprotein 31 mg/dL (5-40)
== END | disposition home or self-care (01) ==
LOC: MFPLAB 14:20
PROVIDERS: PCP Family Medicine; Visit Provider Family Medicine
DX: E11.9 Type 2 diabetes mellitus without complications (principal)
CPT/HCPCS: 36415; 80053; 80061; 83036; 84443; 85025

== ENCOUNTER → 2023-04-04 | Outpatient (CLI) | payer OTHER, SELFPAY ==
--- NOTE | 2023-04-04 14:30 | MRI_ITS ---
We are attempting to reach an attending provider to discuss findings. An addendum with communication details will be sent when the communication is complete. STUDY: MRI BRAIN WITH AND WITHOUT CONTRAST REASON FOR EXAM: Male, 52 years old. AMAUROSIS FUGAX LEFT eye, left sided weakness, facial droop, speech issues, vision changes TECHNIQUE: Standardized multiplanar fat and water weighted pulse sequences were obtained. 27ml iv clariscan was administered for the contrast portion of the examination. COMPARISON: MRI brain May 31, 2021 FINDINGS: Normal size of the ventricles and extra-axial spaces for the patient''s age. Normal white matter tracts of the supratentorial brain. Normal bilateral basal ganglia. Normal thalami. There is no extra-axial fluid accumulation. Normal flow voids within the major intracranial circulation suggesting patency by spin echo criteria. Normal venous enhancement. There is no enhancing intra-axial or extra-axial abnormality. There is a small enhancing right parasellar lesion measuring approximately 2.5 x 1.11 x 1.5 cm extending into the right prepontine cistern most likely representing meningioma or neuroma.. Normal, pituitary gland, infundibular stalk, optic chiasm and hypothalamus. Normal tectal plate and pineal gland. Normal midbrain, nic and medulla. Normal cerebellum. Normal basal cisterns. Normal bilateral temporal bones. Normal bilateral internal auditory canals. No demonstrated orbital abnormality, within the constraints of a routine brain study. Moderate mucosal thickening of the right sphenoid sinus and minor mucosal thickening of the left ethmoid air cells.. Normal calvarium and skull base. Normal visualized soft tissue structures. Normal visualized upper cervical spine. No significant change in size since prior exam MRI/Brain W/WO Contrast IMPRESSION: Enhancing small right parasellar mass extending into the prepontine cistern measuring approximately 2.5 x 1.11 x 1.5 cm most likely meningioma or neuroma which is stable since previous exam. No evidence for acute infarct. Right maxillary and left ethmoid sinus disease likely chronic Electronically Signed: Sean Trivedi MD at 16:41 EDT ,
== END | disposition home or self-care (01) ==
LOC: MRI 14:24
PROVIDERS: PCP Family Medicine; Referring Provider Family Medicine; Visit Provider Family Medicine
DX: G45.3 Amaurosis fugax (principal)
CPT/HCPCS: 70553; A9575

== ENCOUNTER → 2023-04-11 | Outpatient (CLI) | payer OTHER, SELFPAY ==
[2023-04-11 14:19] LABS: Absolute Lymphocyte Count 1.11 X10^3/uL (0.83-4.51); Absolute Neutrophil Count 5.1 X10^3/uL (2.0-7.7); Basophil# 0.05 X10^3/uL; Basophil% 0.7 % (0-1); Eosinophil# 0.15 X10^3/uL; Eosinophils% 2.2 % (0-5); Hematocrit 49.2 % (40-54); Hemoglobin 15.8 g/dL (13.0-16.5); Lymphocyte # 1.11 X10^3/ul (0.83-4.51); Lymphocyte % 16.2 % (19-41); Mean Corp Hgb Conc 32.1 g/dL (32-36); Mean Corpuscular Hgb 27.9 pg (27.0-32.0); Mean Corpuscular Volume 86.9 fL (80-94); Mean Platelet Vol. 10.1 fl (6.2-12.0); Monocyte# 0.44 X10^3/uL; Monocyte% 6.4 % (0-10); NRBC Flagged by Analyzer 0 % (0-5); Neutrophil # 5.06 X10^3/uL (2.7-7.7); Neutrophil % 73.8 % (47-70); Platelet Count 225 K/mm3 (150-450); RBC Distribution Width CV 13.5 % (11.6-14.6); RBC Distribution Width SD 43.1 fl (35.1-43.9); Red Blood Count 5.66 M/mm3 (4.6-6.2); White Blood Count 6.9 K/mm3 (4.4-11.0)
[2023-04-11 14:57] LABS: AST(SGOT) 16 U/L (15-37); Alanine Aminotransfer ALT/SGPT 14 U/L (16-61); Albumin, Serum 3.7 g/dL (3.2-5.0); Alkaline Phosphatase 101 U/L (45-117); Anion Gap 3 (5-15); BUN 14 mg/dL (7-18); BUN/Creat Ratio 18.1 RATIO (10-20); Chloride 104 mmol/L (98-107); Cholesterol 156 mg/dL (200); Creatinine, Serum 0.77 mg/dL (0.70-1.30); EST Glomerular Filtration Rate 111 mL/min (>60); Est Glom Filt Rate - Afr Amer 135 mL/min (>60); Globulin 3.6 g/dL (2.2-4.2); Glucose 105 mg/dL (74-106); High Density Lipoprotein 41 mg/dL; Protein, Total 7.3 g/dL (6.4-8.2); Sodium Level 134 mmol/L (136-145); T4 Free Direct 0.98 ng/dL (0.76-1.46); Thyroid Stim Hormone (TSH) 7.05 uIU/mL (0.358-3.74); Triglycerides 167 mg/dL; Very Low Density Lipoprotein 33 mg/dL (5-40)
[2023-04-11 15:09] LABS: Hemoglobin A1c 6.5 % (3.8-5.6)
[2023-04-11 15:11] LABS: Amphetamine Urine VISTA NEGATIVE (<1000 ng/mL); Barbiturate Urine VISTA NEGATIVE (< 200 ng/mL); Benzodiazepine Urine VISTA NEGATIVE (< 200 ng/mL); Cocaine Urine VISTA NEGATIVE (< 300 ng/mL); Ecstacy Urine VISTA NEGATIVE (< 500 ng/mL); Methadone Urine VISTA NEGATIVE (< 300 ng/mL); PCP Urine VISTA NEGATIVE (< 25 ng/mL); THC Urine VISTA NEGATIVE (< 50 ng/mL); Vista UDS pH Range 5
== END | disposition home or self-care (01) ==
PROVIDERS: PCP Family Medicine; Referring Provider Anesthesiology Pain Medicine; Visit Provider Anesthesiology Pain Medicine
DX: F11.20 Opioid dependence, uncomplicated (principal); E11.9 Type 2 diabetes mellitus without complications; E06.3 Autoimmune thyroiditis
CPT/HCPCS: 36415; 80053; 80061; 80307; 83036; 84439; 84443; 85025

== ENCOUNTER → 2023-07-18 | Outpatient (CLI) | payer OTHER, SELFPAY ==
[2023-07-18 10:00] LABS: Absolute Lymphocyte Count 0.97 X10^3/uL (0.83-4.51); Absolute Neutrophil Count 5.5 X10^3/uL (2.0-7.7); Basophil# 0.05 X10^3/uL; Basophil% 0.7 % (0-1); Eosinophil# 0.17 X10^3/uL; Eosinophils% 2.3 % (0-5); Hematocrit 48.5 % (40-54); Hemoglobin 15.3 g/dL (13.0-16.5); Lymphocyte # 0.97 X10^3/ul (0.83-4.51); Lymphocyte % 13.2 % (19-41); Mean Corp Hgb Conc 31.5 g/dL (32-36); Mean Corpuscular Hgb 27.7 pg (27.0-32.0); Mean Corpuscular Volume 87.9 fL (80-94); Mean Platelet Vol. 10.4 fl (6.2-12.0); Monocyte# 0.57 X10^3/uL; Monocyte% 7.8 % (0-10); NRBC Flagged by Analyzer 0 % (0-5); Neutrophil % 74.9 % (47-70); Platelet Count 227 K/mm3 (150-450); RBC Distribution Width CV 13.7 % (11.6-14.6); RBC Distribution Width SD 43.7 fl (35.1-43.9); Red Blood Count 5.52 M/mm3 (4.6-6.2); White Blood Count 7.3 K/mm3 (4.4-11.0)
[2023-07-18 10:27] LABS: Microalbumin,Random Urine 9.3 mg/L (NO RANGE EST.); Microalbumin:Creatinine Ratio 11.1 mg/g CRE (<30 mg/g CRE)
[2023-07-18 10:54] LABS: AST(SGOT) 8 U/L (15-37); Alanine Aminotransfer ALT/SGPT 12 U/L (16-61); Albumin, Serum 3.6 g/dL (3.2-5.0); Alkaline Phosphatase 107 U/L (45-117); Anion Gap 5 (5-15); BUN 18 mg/dL (7-18); BUN/Creat Ratio 23.2 RATIO (10-20); Calcium,Total 9.2 mg/dL (8.5-10.1); Chloride 106 mmol/L (98-107); Cholesterol 127 mg/dL (200); Creatinine, Serum 0.78 mg/dL (0.70-1.30); EST Glomerular Filtration Rate 111 mL/min (>60); Est Glom Filt Rate - Afr Amer 134 mL/min (>60); Globulin 3.5 g/dL (2.2-4.2); Glucose 144 mg/dL (74-106); High Density Lipoprotein 41 mg/dL; Potassium 4.1 mmol/L (3.5-5.1); Protein, Total 7.1 g/dL (6.4-8.2); Sodium Level 139 mmol/L (136-145); T4 Free Direct 1.05 ng/dL (0.76-1.46); Thyroid Stim Hormone (TSH) 5.96 uIU/mL (0.358-3.74); Triglycerides 152 mg/dL; Very Low Density Lipoprotein 30 mg/dL (5-40)
[2023-07-18 11:01] LABS: Hemoglobin A1c 6.8 % (3.8-5.6)
== END | disposition home or self-care (01) ==
LOC: MFPLAB 08:47
PROVIDERS: PCP Family Medicine; Visit Provider Family Medicine
DX: E11.8 Type 2 diabetes mellitus with unspecified complications (principal); E06.3 Autoimmune thyroiditis
CPT/HCPCS: 36415; 80053; 80061; 82043; 82570; 83036; 84439; 84443; 85025

== ENCOUNTER → 2023-10-17 | Outpatient (CLI) | payer OTHER, SELFPAY ==
[2023-10-17 12:06] LABS: Absolute Neutrophil Count 5.3 X10^3/uL (2.0-7.7); Basophil# 0.04 X10^3/uL; Basophil% 0.6 % (0-1); Eosinophil# 0.13 X10^3/uL; Eosinophils% 1.9 % (0-5); Hemoglobin 15.1 g/dL (13.0-16.5); Lymphocyte % 14.4 % (19-41); Mean Corp Hgb Conc 31.5 g/dL (32-36); Mean Corpuscular Hgb 27.6 pg (27.0-32.0); Mean Corpuscular Volume 87.8 fL (80-94); Monocyte# 0.46 X10^3/uL; Monocyte% 6.6 % (0-10); NRBC Flagged by Analyzer 0 % (0-5); Neutrophil # 5.29 X10^3/uL (2.7-7.7); Neutrophil % 75.9 % (47-70); Platelet Count 230 K/mm3 (150-450); RBC Distribution Width CV 13.7 % (11.6-14.6); Red Blood Count 5.47 M/mm3 (4.6-6.2)
[2023-10-17 12:38] LABS: ALB/GLOB Ratio 1.1 RATIO (0.9-2.4); AST(SGOT) 9 U/L (15-37); Alanine Aminotransfer ALT/SGPT 14 U/L (16-61); Albumin, Serum 3.7 g/dL (3.2-5.0); Alkaline Phosphatase 122 U/L (45-117); Anion Gap 7 (5-15); BUN 19 mg/dL (7-18); BUN/Creat Ratio 19.8 RATIO (10-20); Calcium,Total 8.7 mg/dL (8.5-10.1); Chloride 105 mmol/L (98-107); Cholesterol 161 mg/dL (200); Creatinine, Serum 0.96 mg/dL (0.70-1.30); EST Glomerular Filtration Rate 86 mL/min (>60); Est Glom Filt Rate - Afr Amer 105 mL/min (>60); Globulin 3.5 g/dL (2.2-4.2); Glucose 159 mg/dL (74-106); High Density Lipoprotein 47 mg/dL; Potassium 4.1 mmol/L (3.5-5.1); Protein, Total 7.2 g/dL (6.4-8.2); Sodium Level 139 mmol/L (136-145); T4 Free Direct 0.99 ng/dL (0.76-1.46); Thyroid Stim Hormone (TSH) 4.69 uIU/mL (0.358-3.74); Triglycerides 145 mg/dL; Very Low Density Lipoprotein 29 mg/dL (5-40)
[2023-10-17 12:52] LABS: Microalbumin,Random Urine 10.8 mg/L (NO RANGE EST.); Microalbumin:Creatinine Ratio 13.5 mg/g CRE (<30 mg/g CRE)
[2023-10-17 12:56] LABS: Hemoglobin A1c 6.6 % (3.8-5.6)
== END | disposition home or self-care (01) ==
LOC: MFPLAB 09:34
PROVIDERS: PCP Family Medicine; Visit Provider Family Medicine
DX: E11.8 Type 2 diabetes mellitus with unspecified complications (principal); E06.3 Autoimmune thyroiditis
CPT/HCPCS: 36415; 80053; 80061; 82043; 82570; 83036; 84439; 84443; 85025

== ENCOUNTER 2023-12-22 10:53 | Day surgery (SDC) | payer OTHER, SELFPAY ==
--- NOTE | 2023-12-22 | FORE_PTH ---
PATHOLOGY RESULTS PATIENT: JONEL MINOR Sr. [place] [facility] [place][id number] AGE/SX: 53/M ROOM: RE12/22/[address]: Dr. Chary Pandya MD : 1970 BED: DIS: 12/22/2023 SPEC #: [id number] RECD: 12/22/23 18:04 STATUS: LITTLE REBennett #: [id number] RIAZ: 12/22/23 00:[address]: Chary Pandya DEPT: SURGICAL PATHOLOGY RECD BY: Mahesh Cuellar ENTERED: 12/25/23 08:09 SP TYPE: FOREIGN B OTHR DR: Dr. Cb Rodriguze MD Tissues: FOREIGN BODY Procedures: Surgery Specimen Level I Surgery Specimen Level III HEADER OPERATION: Battery revision and replacement, spinal cord stimulator PRE-OP DIAGNOSIS: Spinal cord stimulator battery wound dehiscence TISSUE SUBMITTED: Spinal cord stimulator battery and tissue MICROSCOPIC DIAGNOSIS Spinal cord battery and tissue: A battery (gross only). A piece of skin with underlying tissue with acute and chronic inflammation and granulation tissue reaction. BYRON:mina 12/26/2023 MICROSCOPIC DESCRIPTION Slides are reviewed. GROSS DESCRIPTION Received in fixative is one container labeled with the patient's name and designated spinal cord stimulator battery and tissue. The specimen consists of a metallic battery with inscription [employer] with adaptive stent submitted inscription shows 7__0 and then 15_...8 and it measures 6.0 x 4.5 x 0.5 cm. Opposite side inscription shows [id number]. Also present in the container is a piece of skin with underlying tissue measuring 4.0 x 1.2 x 0.3 cm. Submitted battery is for gross identification. Licensed Nuclear Operator sections of skin is submitted in one cassette. / SJ:mina 12/25/2023 TC:3 CPT: 85172, 42679
[2023-12-22 11:40] VITALS: BP 124/86; PULSE 82; RESP 16; TEMP 36.6; O2SAT 96; BMI 41.2
[2023-12-22] MEDS: Lactated Ringers 1,000 ML 15 ML IV (11:48)
[2023-12-22 12:11] LABS: Bedside Glucose 121 mg/dL (74-106)
[2023-12-22] MEDS: Lidocaine 0.5%/Epi 1:200 (50ml 50 ML Vial INFILT (14:44)
--- NOTE | 2023-12-22 14:52 | RAD_ITS ---
CLINICAL HISTORY: SPINAL CORD STIM. BATTERY CHANGE Date: 12/22/2023 2:58 PM Date of : 1970 Images assigned to this order were provided in conjunction with a surgical procedure performed in the operating room/procedural suite. Please see operative report for details. Fluoroscopic images: 1 Fluoroscopic time: 2.4 seconds Cumulative dose: NA, mGym2; 1.11; mGy Single image documents spinal stimulator projecting in normal position along the thoracic spinal canal. Refer to procedural note for complete description. Impressions: 1. Fluoroscopic guidance for surgical planning and confirmation Electronically Signed: Glenn Delgaod MD at 1:18 EST , RAD/Spine 1 View Any Level IMPRESSION: undefined
[2023-12-22 16:13] VITALS: BP 124/86; BP 126/84; PULSE 86; RESP 16; TEMP 36.2; O2SAT 91
[2023-12-22 16:15] VITALS: BP 124/81; BP 124/86; PULSE 83; RESP 16; O2SAT 93
[2023-12-22 16:20] VITALS: BP 124/86; BP 125/86; PULSE 87; RESP 16; O2SAT 90
[2023-12-22 16:25] VITALS: BP 121/82; BP 124/86; PULSE 82; RESP 16; TEMP 36.1; O2SAT 93
[2023-12-22 16:42] VITALS: BP 124/86
== END 2023-12-22 17:37 | disposition home or self-care (01) ==
LOC: SDC 10:56 → AC 10:58
PROVIDERS: PCP Family Medicine; Referring Provider Anesthesiology Pain Medicine; Visit Provider Anesthesiology Pain Medicine
PROC: (CPT 63688; principal; 2023-12-22 13:45)
DX: T85.890A Other specified complication of nervous system prosthetic devices, implants and grafts, initial encounter (principal); E11.40 Type 2 diabetes mellitus with diabetic neuropathy, unspecified; E66.01 Morbid (severe) obesity due to excess calories; Z68.41 Body mass index [BMI] 40.0-44.9, adult; Z79.4 Long term (current) use of insulin; G89.4 Chronic pain syndrome; M96.1 Postlaminectomy syndrome, not elsewhere classified; Y75.2 Prosthetic and other implants, materials and neurological devices associated with adverse incidents; I10 Essential (primary) hypertension; E78.5 Hyperlipidemia, unspecified; E03.9 Hypothyroidism, unspecified; I25.10 Atherosclerotic heart disease of native coronary artery without angina pectoris; G47.33 Obstructive sleep apnea (adult) (pediatric); Z79.84 Long term (current) use of oral hypoglycemic drugs; Z79.85 Long-term (current) use of injectable non-insulin antidiabetic drugs; Z79.1 Long term (current) use of non-steroidal anti-inflammatories (NSAID); Z79.899 Other long term (current) drug therapy
CPT/HCPCS: 63685; 00300; 72020; 76000; 82962; 88300; 88304; C1820; J7120; J2405

== ENCOUNTER → 2024-02-26 | Outpatient (CLI) | payer OTHER, SELFPAY ==
--- NOTE | 2024-02-26 06:52 | ECHOD_ITS ---
Reason For Study: CHEST PAIN Procedure This was a 2D Doppler, Color Flow transthoracic echocardiogram. The study was technically difficult. Exam performed in department. Left Ventricle Normal size and thickness. The left ventricular ejection fraction is 60 %. Diastolic function is indeterminate. Right Ventricle Normal right ventricle. Atria The left and right atria are normal. Mitral Valve Trivial mitral valve insufficiency. Tricuspid Valve Trivial tricuspid valve insufficiency. Unable to estimate RV systolic pressure due to insufficient tricuspid regurgitant envelope. Aortic Valve Trisinus/trileaflet aortic valve. Trivial aortic valve insufficiency. Pulmonic Valve The pulmonic valve is not well visualized. Great Vessels Mildly dilated aortic root. Pericardium/Pleural No pericardial effusion. MMode/2D Measurements & Calculations LVIDd: 4.2 cm IVSd: 1.1 cm Ao root diam: 3.7 cm LVIDs: 2.7 cm LVPWd: 1.1 cm FS: 36.0 % LAV(MOD-bp): 54.2 ml LVAd ap4: 31.2 cm2 SV(MOD-sp4): 57.7 ml LAV(MOD-bp) Indexed: 21.6 ml/m2 LVLd ap4: 7.8 cm LAV(MOD-sp2): 43.6 ml EDV(MOD-sp4): 99.5 ml LAV(MOD-sp4): 51.8 ml EDV(sp4-el): 105.6 ml LVAs ap4: 17.4 cm2 LVLs ap4: 5.9 cm ESV(MOD-sp4): 41.8 ml ESV(sp4-el): 43.8 ml EF(MOD-sp4): 58.0 % EF(sp4-el): 58.6 % SV(sp4-el): 61.9 ml LA A4 area: 20.5 cm2 LA dimension(2D): 3.6 cm RA A4 area: 17.2 cm2 TAPSE: 1.7 cm Time Measurements MV dec time: 0.13 sec Doppler Measurements & Calculations MV E max juan: 69.9 cm/sec Lat Peak E' Juan: 8.6 cm/sec Med Peak E' Juan: 6.3 cm/sec MV A max juan: 90.1 cm/sec E/E' lat: 8.1 E/E' med: 11.2 MV E/A: 0.78 MV V2 max: 86.2 cm/sec Ao V2 max: 94.8 cm/sec MV max P.0 mmHg MV dec slope: 646.4 cm/sec2 Ao max P.6 mmHg MV V2 mean: 53.0 cm/sec Ao V2 mean: 59.1 cm/sec MV mean P.4 mmHg Ao mean P.7 mmHg MV V2 VTI: 17.2 cm Ao V2 VTI: 17.1 cm AV (velocity ratio): 1.0 LV V1 max: 96.9 cm/sec PA V2 max: 86.5 cm/sec LV V1 max P.8 mmHg PA V2 mean: 67.5 cm/sec LV V1 mean P.8 mmHg LV V1 mean: 61.1 cm/sec LV V1 VTI: 17.5 cm ECHO/Echo Complete Interpretation Summary The study was technically difficult. The left ventricular ejection fraction is 60 %. Mildly dilated aortic root. Ordering Physician: Tanya Salomon Referring Physician: Tanya Salomon Performed By: Alejandra Jon RCS
--- NOTE | 2024-02-26 10:48 | STRESSREP ---
Stress Test Report Date: 02/26/2024 Procedure: Pharmacologic stress nuclear imaging study Indications: Chest pain Consent: Per the patient Procedure: The patient underwent pharmacologic (Regadenoson 0.4mg ) evaluation with a peak heart rate of 111 beats per minute (67%predicted maximal heart rate) and a peak blood pressure of 112/82 mmHg. The baseline ECG demonstrated sinus rhythm. The peak pharmacologic ECG demonstrated no ischemic change. There were no cardiac dysrhythmias pretest, during pharmacologic infusion, or recovery. There was no complaint of chest discomfort during pharmacologic infusion or recovery. The patient was injected with 15.0 millicuries of technetium 99m Cardiolite and subsequently rest SPECT Cardiolite nuclear imaging was obtained in the horizontal long, vertical long, and short axis views. The patient underwent pharmacologic (Regadenoson) evaluation. The patient was injected with 45.0 millicuries of technetium 99m Cardiolite and subsequently stress SPECT Cardiolite nuclear imaging was obtained in the horizontal long, vertical long, and short axis views. A gated Cardiolite study at peak stress was obtained. The examination was stopped secondary to completion of protocol. Rest and stress SPECT Cardiolite nuclear imaging status post realignment, normalization, and attenuation correction demonstrate no fixed or reversible perfusion defects. There is end systolic thickening and brightening. The gated Cardiolite study demonstrates myocardial thickening and inward wall motion. The reported LVEF is 56%. Impression: 1. Pharmacologic (Regadenoson) evaluation 2. Peak pharmacologic ECG with no ischemic change. 3. There were no cardiac dysrhythmias pretest, during pharmacologic infusion, or recovery. 5. Rest and stress SPECT Cardiolite nuclear imaging demonstrate relative uniform tracer uptake and myocardial perfusion appearing within normal limits. 6. The gated Cardiolite study reports an LVEF of 56%. This note was generated with [employer] software. It may contain incorrect words, spelling, and punctuation that were not noted in checking the note before signing.
== END | disposition home or self-care (01) ==
LOC: CVS 06:52
PROVIDERS: PCP Family Medicine; Referring Provider Internal Medicine Cardiovascular Disease; Visit Provider Internal Medicine Cardiovascular Disease
DX: R07.9 Chest pain, unspecified (principal); I10 Essential (primary) hypertension; R00.2 Palpitations
CPT/HCPCS: 78452; 93017; 93306; A9500; A4216; J2785

== ENCOUNTER → 2024-03-11 | Outpatient (CLI) | payer OTHER, SELFPAY ==
[2024-03-11 15:25] LABS: Absolute Neutrophil Count 5.2 X10^3/uL (2.0-7.7); Basophil# 0.03 X10^3/uL; Basophil% 0.5 % (0-1); Eosinophil# 0.17 X10^3/uL; Eosinophils% 2.6 % (0-5); Hematocrit 47.7 % (40-54); Hemoglobin 15.5 g/dL (13.0-16.5); Lymphocyte % 10.7 % (19-41); Mean Corp Hgb Conc 32.5 g/dL (32-36); Mean Corpuscular Hgb 28.2 pg (27.0-32.0); Mean Corpuscular Volume 86.7 fL (80-94); Mean Platelet Vol. 10.8 fl (6.2-12.0); Monocyte# 0.42 X10^3/uL; Monocyte% 6.4 % (0-10); NRBC Flagged by Analyzer 0 % (0-5); Neutrophil % 79.5 % (47-70); Platelet Count 204 K/mm3 (150-450); RBC Distribution Width CV 13.7 % (11.6-14.6); RBC Distribution Width SD 43.6 fl (35.1-43.9); White Blood Count 6.5 K/mm3 (4.4-11.0)
[2024-03-11 16:21] LABS: Hemoglobin A1c 6.2 % (3.8-5.6)
[2024-03-11 16:40] LABS: ALB/GLOB Ratio 1.1 RATIO (0.9-2.4); AST(SGOT) 13 U/L (15-37); Alanine Aminotransfer ALT/SGPT 13 U/L (16-61); Albumin, Serum 3.6 g/dL (3.2-5.0); Alkaline Phosphatase 98 U/L (45-117); Anion Gap 8 (5-15); BUN 18 mg/dL (7-18); BUN/Creat Ratio 24.2 RATIO (10-20); Calcium,Total 9.1 mg/dL (8.5-10.1); Chloride 108 mmol/L (98-107); Creatinine, Serum 0.74 mg/dL (0.70-1.30); EST Glomerular Filtration Rate 116 mL/min (>60); Est Glom Filt Rate - Afr Amer 140 mL/min (>60); Globulin 3.3 g/dL (2.2-4.2); Glucose 164 mg/dL (74-106); Protein, Total 6.9 g/dL (6.4-8.2); Sodium Level 138 mmol/L (136-145); T4 Free Direct 1.01 ng/dL (0.76-1.46); Thyroid Stim Hormone (TSH) 3.09 uIU/mL (0.358-3.74)
== END | disposition home or self-care (01) ==
LOC: MFPLAB 11:33
PROVIDERS: PCP Family Medicine; Visit Provider Family Medicine
DX: E11.8 Type 2 diabetes mellitus with unspecified complications (principal); E06.3 Autoimmune thyroiditis
CPT/HCPCS: 36415; 80053; 83036; 84439; 84443; 85025

== ENCOUNTER → 2024-03-12 | Outpatient (CLI) | payer OTHER, SELFPAY ==
[2024-03-12 10:35] LABS: Cholesterol 131 mg/dL (200); High Density Lipoprotein 40 mg/dL; Triglycerides 118 mg/dL; Very Low Density Lipoprotein 24 mg/dL (5-40)
== END | disposition home or self-care (01) ==
LOC: MFPLAB 08:54
PROVIDERS: PCP Family Medicine; Visit Provider Family Medicine
DX: E11.8 Type 2 diabetes mellitus with unspecified complications (principal)
CPT/HCPCS: 36415; 80061

== ENCOUNTER → 2024-12-17 | Outpatient (CLI) | payer OTHER, SELFPAY ==
[2024-12-17 12:55] LABS: Amphetamine Urine NEGATIVE (<1000 ng/mL); Barbiturate Urine VISTA NEGATIVE (< 200 ng/mL); Benzodiazepine Urine VISTA NEGATIVE (< 200 ng/mL); Cocaine Urine VISTA NEGATIVE (< 300 ng/mL); Ecstacy Urine VISTA NEGATIVE (< 500 ng/mL); Methadone Urine VISTA NEGATIVE (< 300 ng/mL); Opiates Urine NEGATIVE (< 300 ng/mL); PCP Urine NEGATIVE (< 25 ng/mL); THC Urine VISTA NEGATIVE (< 50 ng/mL)
[2024-12-17 13:31] LABS: Vista UDS pH Range 5
== END | disposition home or self-care (01) ==
PROVIDERS: PCP Family Medicine; Referring Provider Anesthesiology Pain Medicine; Visit Provider Anesthesiology Pain Medicine
DX: F11.20 Opioid dependence, uncomplicated (principal)
CPT/HCPCS: 80307

== ENCOUNTER → 2025-01-23 | Outpatient (CLI) | payer OTHER, SELFPAY ==
[2025-01-23 12:11] LABS: Absolute Lymphocyte Count 1.16 X10^3/uL (0.83-4.51); Absolute Neutrophil Count 4.7 X10^3/uL (2.0-7.7); Basophil# 0.05 X10^3/uL; Basophil% 0.8 % (0-1); Eosinophil# 0.19 X10^3/uL; Eosinophils% 2.9 % (0-5); Hematocrit 47.7 % (40-54); Lymphocyte # 1.16 X10^3/ul (0.83-4.51); Lymphocyte % 17.5 % (19-41); Mean Corp Hgb Conc 33.5 g/dL (32-36); Mean Corpuscular Hgb 28.6 pg (27.0-32.0); Mean Corpuscular Volume 85.3 fL (80-94); Mean Platelet Vol. 10.7 fl (6.2-12.0); Monocyte# 0.53 X10^3/uL; NRBC Flagged by Analyzer 0 % (0-5); Neutrophil # 4.67 X10^3/uL (2.7-7.7); Neutrophil % 70.2 % (47-70); Platelet Count 186 K/mm3 (150-450); RBC Distribution Width CV 13.2 % (11.6-14.6); RBC Distribution Width SD 41.1 fl (35.1-43.9); Red Blood Count 5.59 M/mm3 (4.6-6.2); White Blood Count 6.6 K/mm3 (4.4-11.0)
[2025-01-23 12:30] LABS: Hemoglobin A1c 7.8 % (<=5.6)
[2025-01-23 12:48] LABS: ALB/GLOB Ratio 1.7 RATIO (0.9-2.4); AST(SGOT) 15 U/L (<=37); Alanine Aminotransfer ALT/SGPT 10 U/L (<=46); Albumin, Serum 4.3 g/dL (3.5-5.0); Alkaline Phosphatase 99 U/L (40-129); Anion Gap 14 (5-15); BUN 16 mg/dL (4-19); BUN/Creat Ratio 18.5 RATIO (10-20); Carbon Dioxide 23.2 mmol/L (21.0-32.0); Chloride 102 mmol/L (98-108); Cholesterol 134 mg/dL (<=200); Creatinine, Serum 0.88 mg/dL (0.70-1.20); EST Glomerular Filtration Rate 101 (>60); Globulin 2.6 g/dL (2.2-4.2); Glucose 138 mg/dL (70-99); High Density Lipoprotein 45 mg/dL; Low Density Lipoprotein Calc. 70 mg/dL; Potassium 3.8 mmol/L (3.3-5.1); Sodium Level 138 mmol/L (133-145); Total Bilirubin 1.07 mg/dL (0.00-1.30); Triglycerides 98 mg/dL; Very Low Density Lipoprotein 20 mg/dL (5-40)
[2025-01-23 13:57] LABS: Microalbumin,Random Urine < 12.0 mg/L (NO RANGE EST.)
== END | disposition home or self-care (01) ==
LOC: MFPLAB 10:13
PROVIDERS: PCP Family Medicine; Referring Provider Family Medicine; Visit Provider Family Medicine
DX: E06.3 Autoimmune thyroiditis (principal); E11.8 Type 2 diabetes mellitus with unspecified complications
CPT/HCPCS: 36415; 80053; 80061; 82043; 82570; 83036; 84439; 84443; 85025

== ENCOUNTER → 2025-02-18 | Outpatient (CLI) | payer OTHER, SELFPAY ==
--- NOTE | 2025-02-18 12:48 | ART_ITS ---
Reason For Study Reason For Study: Decreased Pedal Pulses Procedure A bilateral lower extremity continuous wave Doppler with analog waveform analysis,segmental pressures,and ankle brachial indexes with exercise. Left Segmental Pressures Left brachial= 119mmHg. Left posterior tibial artery = 160mmHg. Left dorsalis pedis artery = 146mmHg. Left digit = 100 mmHg. The left posterior tibial artery waveforms are triphasic. The left dorsalis pedis waveforms are triphasic. Right Segmental Pressures No Lt Brachial BP due to Dexcom Device. Right posterior tibial artery = 145mmHg. Right dorsalis pedis artery = 144mmHg. Right digit = 134 mmHg. The right posterior tibial artery waveforms are triphasic. The right dorsalis pedis waveforms are triphasic. Indices The right ankle brachial index by the posterior tibial artery is 1.22. The right ankle brachial index by the dorsalis pedis is 1.21. The right digital-brachial index is 1.13. The right post exercise ankle brachial index is 1.20. The left ankle brachial index by the posterior tibial artery is 1.34. The left ankle brachial index by the dorsalis pedis is 1.23. The left digital-brachial index is 0.84. The left post exercise ankle brachial index is 1.23. VL/Lower Ext Art Exam w/ Exercise Interpretation Summary Right CAR 1.22, normal. TBI and Doppler/PVR waveforms of the right leg normal a t rest. Right lower extremity exhibits normal response to exercise. Left CAR 1.34, normal. TBI and Doppler/PVR waveforms of the left leg normal at rest. Left lower extremity exhibits normal response to exercise. Ordering Physician: Massiel Rodriguez Referring Physician: MASSIEL RODRIGUEZ MD Performed By: Cecilio Ocampo RVT
== END | disposition home or self-care (01) ==
LOC: CVS 12:44
PROVIDERS: PCP Family Medicine; Referring Provider Family Medicine; Visit Provider Family Medicine
DX: R09.89 Other specified symptoms and signs involving the circulatory and respiratory systems (principal)
CPT/HCPCS: 93924

== ENCOUNTER → 2025-03-07 | Outpatient (CLI) | payer OTHER, SELFPAY ==
--- NOTE | 2025-03-07 07:52 | VDLE_ITS ---
Reason For Study Reason For Study: BLE Edema RIGHT LEFT CFV is compressible, spontaneous, phasic, competent CFV is compressible, spontaneous, phasic, competent, and demonstrates normal augmentation. and demonstrates normal augmentation. FV is compressible, spontaneous, phasic, competent FV is compressible, spontaneous, phasic, competent and demonstrates normal augmentation. and demonstrates normal augmentation. POP V is compressible, spontaneous, phasic, competent POP V is compressible, spontaneous, phasic, competent and demonstrates normal augmentation. and demonstrates normal augmentation. T/P Trunk is compressible. T/P Trunk is compressible. PTV is compressible. PTV is compressible. RT PerV is compressible. LT PerV is compressible. SFJ is INCOMPETENT and measures 0.82 cm. SFJ is INCOMPETENT and measures 0.82 cm. GSV proximal thigh measures 0.41 x 0.42 cm. GSV proximal thigh measures 0.32 x 0.32 cm. GSV at knee measures 0.34 x 0.43 cm. GSV at knee measures 0.34 x 0.35 cm. GSV is competent throughout. GSV INCOMPETENT throughout for greater than 0.5 SSV mid calf is competent and measures 0.31 x 0.35 seconds. cm. SSV mid calf is competent and measures 0.32 x 0.36 Procedure cm. Exam performed in department. The exam was diagnostic. VL/Venous Duplex US - Kevin Extrem Interpretation Summary Deep veins of the bilateral lower extremities are patent and compressible segme ntally. There is no evidence of bilateral lower extremity deep vein thrombosis. The bilateral great saphenous veins appea r patent and compressible segmentally. Positive for reflux in the right saphenofemoral junction. Positive for reflux in the left saphenofemoral junction, great saphenous vein t hroughout. Ordering Physician: Seng Lin Referring Physician: Cb Rodriguez Performed By: Cecilio Ocampo RVT
== END | disposition home or self-care (01) ==
LOC: CVS 07:50
PROVIDERS: PCP Family Medicine; Referring Provider Student in an Organized Health Care Education/Training Program; Visit Provider Student in an Organized Health Care Education/Training Program
DX: I87.2 Venous insufficiency (chronic) (peripheral) (principal); R60.0 Localized edema
CPT/HCPCS: 93970

== ENCOUNTER → 2025-04-24 | Outpatient (CLI) | payer OTHER, SELFPAY ==
--- NOTE | 2025-04-24 10:45 | RAD_ITS ---
PROCEDURE: ACUTE ABDOMEN INC CHEST 04/24/2025 REASON FOR EXAM: ABDOMINAL PAIN TECHNIQUE: ACUTE ABDOMEN INC CHEST COMPARISON: 08/05/2022. FINDINGS: Moderate amount of fecal residue in the large bowels. Stimulator device is noted with its tip at T8/T9 level. Mild diffuse spondylosis. Mild bilateral basilar atelectatic pulmonary changes. There is an unremarkable bowel gas pattern. There is no demonstrated free abdominal air. Normal visualized liver. Normal visualized spleen. Normal visualized kidneys. The soft tissue structures of the pelvis are unremarkable. There is no demonstrated pleural abnormality. Normal heart and pericardium. Normal mediastinum and meet. Normal visualized pulmonary arteries. Normal visualized aortic arch and descending thoracic aorta. Normal visualized thoracic spine. Normal visualized ribs, clavicles, and shoulders. There is no demonstrated abnormality of the visualized soft tissue structures of the upper abdomen. RAD/Acute Abdomen Inc Chest IMPRESSION: Moderate amount of fecal residue in the large bowels. Stimulator device is noted with its tip at T8/T9 level. Mild diffuse spondylosis. Mild bilateral basilar atelectatic pulmonary changes. Reading [facility]
[2025-04-24 10:52] LABS: Bacteria 0 SEEN /hpf (None Seen); Mucous, Urine 0 SEEN /hpf (<or=2+); White Blood Cells 0 SEEN /hpf (0-5)
[2025-04-24 12:30] LABS: Color, Urine Yellow (Yellow); Glucose, Dipstick 100 mg/dl (Normal); Ketone-Dipstick 15 mg/dl (Negative); Leukocyte Esterase-Dipstick Negative /ul (Negative); Nitrite-Dipstick Negative (Negative); Occult Blood-Urine Negative /ul (Negative); Protein-Dipstick 15 mg/dl (Negative); Specific Gravity, Urine 1.015 (1.002-1.030); Urine Bilirubin Dipstick Negative (Negative); Urine Clarity Clear (Clear); Urine Urobilinogen Normal (Normal)
[2025-04-24 12:34] LABS: Absolute Lymphocyte Count 0.84 X10^3/uL (0.83-4.51); Absolute Neutrophil Count 7.6 X10^3/uL (2.0-7.7); Basophil# 0.05 X10^3/uL; Basophil% 0.5 % (0-1); Eosinophil# 0.06 X10^3/uL; Eosinophils% 0.6 % (0-5); Hematocrit 50.3 % (40-54); Hemoglobin 17.4 g/dL (13.0-16.5); Lymphocyte # 0.84 X10^3/ul (0.83-4.51); Lymphocyte % 9.1 % (19-41); Mean Corp Hgb Conc 34.6 g/dL (32-36); Mean Corpuscular Hgb 28.6 pg (27.0-32.0); Mean Corpuscular Volume 82.7 fL (80-94); Mean Platelet Vol. 10.3 fl (6.2-12.0); Monocyte# 0.61 X10^3/uL; Monocyte% 6.6 % (0-10); NRBC Flagged by Analyzer 0 % (0-5); Neutrophil # 7.61 X10^3/uL (2.7-7.7); Neutrophil % 82.4 % (47-70); Platelet Count 270 K/mm3 (150-450); RBC Distribution Width CV 12.9 % (11.6-14.6); RBC Distribution Width SD 38.5 fl (35.1-43.9); Red Blood Count 6.08 M/mm3 (4.6-6.2); White Blood Count 9.2 K/mm3 (4.4-11.0)
[2025-04-24 12:36] LABS: Red Blood Cells-Urine 0-5 SEEN /hpf (0-5); Squamous Epithelial Cells - UA 0-5 SEEN /hpf (0-5)
[2025-04-24 13:08] LABS: Hemoglobin A1c 7.9 % (<=5.6)
[2025-04-24 13:10] LABS: Microalbumin,Random Urine 23.4 mg/L (NO RANGE EST.); Microalbumin:Creatinine Ratio 21.5 mg/g CRE
[2025-04-24 13:18] LABS: ALB/GLOB Ratio 1.5 RATIO (0.9-2.4); AST(SGOT) 12 U/L (<=37); Alanine Aminotransfer ALT/SGPT 5 U/L (<=46); Albumin, Serum 4.4 g/dL (3.5-5.0); Alkaline Phosphatase 107 U/L (40-129); Anion Gap 16 (5-15); BUN 18 mg/dL (4-19); BUN/Creat Ratio 19.1 RATIO (10-20); Calcium,Total 9.8 mg/dL (7.6-11.0); Carbon Dioxide 21.6 mmol/L (21.0-32.0); Chloride 97 mmol/L (98-108); Cholesterol 223 mg/dL (<=200); Creatinine, Serum 0.94 mg/dL (0.70-1.20); EST Glomerular Filtration Rate 95 (>60); Glucose 216 mg/dL (70-99); High Density Lipoprotein 49 mg/dL; Lipase 28 U/L (13-75); Low Density Lipoprotein Calc. 149 mg/dL; PSA,Total - Annual Screen 1.41 ng/mL (0.02-4.00); Potassium 3.8 mmol/L (3.3-5.1); Protein, Total 7.5 g/dL (5.9-8.4); Sodium Level 135 mmol/L (133-145); Total Bilirubin 1.58 mg/dL (0.00-1.30); Triglycerides 128 mg/dL; Very Low Density Lipoprotein 26 mg/dL (5-40); cholesterol:hdl ratio screen 4.57
== END | disposition home or self-care (01) ==
LOC: MTLAB 10:44
PROVIDERS: PCP Family Medicine; Referring Provider Family Medicine; Visit Provider Family Medicine
DX: Z12.5 Encounter for screening for malignant neoplasm of prostate (principal); E11.8 Type 2 diabetes mellitus with unspecified complications; R10.9 Unspecified abdominal pain
CPT/HCPCS: 36415; 74022; 80053; 80061; 81001; 82043; 82570; 83036; 83690; 84153; 85025; G0103

== ENCOUNTER 2025-05-07 09:03 | Emergency (ER) | payer OTHER, SELFPAY ==
[2025-05-07 09:04] VITALS: BP 169/92; PULSE 80; RESP 18; TEMP 37.1; O2SAT 99; BMI 42.5
--- NOTE | 2025-05-07 09:12 | EKG12_ITS ---
Test Reason : CP Blood Pressure : */* mmHG Vent. Rate : 79 BPM Atrial Rate : 79 BPM P-R Int : 156 ms QRS Dur : 98 ms QT Int : 376 ms P-R-T Axes : 36 52 68 degrees QTcB Int : 431 ms Normal sinus rhythm Normal ECG Confirmed by CM BEY, SAHIL ([id number]), assistant production editor NEFTALY DAWKINS ([id number]) on 05/08/2025 10:04:39 AM Referred By: ES Confirmed By: SAHIL PABON MD
--- NOTE | 2025-05-07 09:13 | ED.VIS.CHEST ---
HPI History of Present Illness Chief Complaint: Chest Pain Narrative Narrative: 54-year-old male past medical history of diabetes with diabetic neuropathy, hypertension, states he has a spinal stimulator presents with chest pain, lightheadedness and dizziness that began 30 to 40 minutes ago, prior to arrival. States he woke up this morning, did not necessarily feel well. He ate breakfast and on his way to work started developing dry mouth, lightheadedness and dizziness and had chest pains. Describes it as a pain in the center of his chest, went through to his back, up his neck, and down his left arm. He states that his hands felt very clammy and sweaty as well. Denies any leg swelling, no exacerbating or alleviating factors. [facility] Medical History SHEPPARD (dyspnea on exertion) Chest pain Brain tumor (~05/2023) Diabetic neuropathy Hyperlipidemia Facial asymmetry José Luis's thyroiditis Inflammation of joint of left shoulder region Inflammation of joint of right shoulder region Wears glasses Wears dentures Abrasion Insulin dependent diabetes mellitus Excessive bleeding Restless legs Injury of back Dietary restriction History of ulceration C. difficile diarrhea Leg cramps Neuropathic pain of both feet History of edema Non-smoker CPAP (continuous positive airway pressure) dependence Coma History of echocardiogram History of stress test Cardiology follow-up encounter History of deviated nasal septum Shoulder strain Ulcer Hemorrhoids Blood in stool Constipation Diarrhea Nausea Abdominal pain SOB (shortness of breath) History of heart attack Arthritis Fatigue LUIS on CPAP Palpitations Hypogonadism in male Cephalalgia RIAN (generalized anxiety disorder) Hypothyroidism Peptic ulcer Essential hypertension Type 2 diabetes mellitus without complication Morbid obesity Home Medications ?Medication ?Instructions ?Recorded ?Last Taken ?Type nitroglycerin 0.4 mg sublingual 0.4 mg sublingual Q5-15M PRN 06/03/19 Unknown History tablet Cardiac/Chest Pain insulin lispro 100 unit/mL 25 unit subcut QAC 09/18/19 05/05/25 History subcutaneous pen (Humalog KwikPen (U-100) Insulin) metformin 500 mg tablet,extended 1,000 mg PO BID 01/06/20 05/07/25 History release 24 hr empagliflozin 25 mg tablet 25 mg PO DAILY 08/01/22 05/07/25 History (Jardiance) icosapent ethyl 1 gram capsule 2 g PO BID 08/01/22 05/06/25 History (Vascepa) gabapentin 800 mg tablet 800 mg PO TID 05/23/23 05/07/25 History metoprolol succinate 25 mg 25 mg PO DAILY 05/23/23 05/07/25 History tablet,extended release 24 hr semaglutide 2 mg/dose (8 mg/3 mL) 2 mg subcut QWEEK 05/23/23 Unknown History subcutaneous pen injector (Ozempic) sildenafil 100 mg tablet 50 mg PO DAILY PRN sexual activity 05/23/23 Unknown History vitamins A,C,K-hsfh-jtencc 4,296 1 cap PO BID 05/23/23 Unknown History mcg-226 mg-90 mg capsule (PreserVision AREDS) insulin glargine 100 unit/mL (3 50 unit subcut BID 01/29/24 05/05/25 History mL) subcutaneous pen (Lantus Solostar U-100 Insulin) Allergy/AdvReac Type Severity Reaction Status Date / Time latex Allergy Severe Rash Verified 05/07/25 09:04 aspirin Allergy Vomiting Verified 05/07/25 09:04 NSAIDS (Non-Steroidal Allergy Nausea Verified 05/07/25 09:04 Anti-Inflamma procaine (From Novocain) Allergy Unknown Verified 05/07/25 09:04 adhesive tape AdvReac Rash Verified 05/07/25 09:04 Family History Mother Heart disease Hypertension Kidney disease Cancer skin Asthma Arthritis Myocardial infarction Diabetes CVA (cerebral vascular accident) Thyroid disorder Bleeding disorder Father Hypertension Chronic mental illness Heart disease Uncle CHF (congestive heart failure) Brother Heart disease Surgical History S/P insertion of spinal cord stimulator (08/05/22) Hx of vasectomy History of loop recorder (09/27/19) History of colonoscopy History of ear surgery History of hand surgery History of knee surgery History of bilateral inguinal hernia repair Social History Smoking Status: Never smoker alcohol intake: current alcohol intake frequency: holidays/special occasions only Alcohol type: beer substance use type: does not use caffeine: Yes Type: coffee Number of servings: 2 what type of physical activity do you participate in: none frequency: does not exercise ROS ROS ED ROS Narrative Review of systems positive for chest pain, lightheadedness, dizziness, sweaty hands. Denies any recent fevers or chills, no cough, no exacerbating or alleviating factors. No leg swelling. EXAM Physical Exam Narrative Exam Narrative: Afebrile. Vital signs noted. Nontoxic-appearing. Cardiovascular examination reveals regular rate and rhythm. Lungs are clear to auscultation bilaterally. Abdomen is soft and nontender without guarding or rebound. Neurological examination nonfocal, nonlateralizing. No pedal edema. Const Vital Signs: 05/07/25 09:04 05/07/25 09:07 05/07/25 09:12 Temperature 98.7 F Temperature Source Oral Pulse Rate 80 Respiratory Rate 18 Respiratory Effort Short of Breath Blood Pressure 169/92 H Blood Pressure Mean 117 Pulse Ox 99 Oxygen Delivery Method Room Air Nasal Cannula Oxygen Flow Rate (L/min) 2 05/07/25 10:03 05/07/25 11:00 05/07/25 12:00 Temperature Temperature Source Pulse Rate 93 85 83 Respiratory Rate 24 H 11 L 19 H Respiratory Effort Blood Pressure 150/72 H 149/103 H 152/90 H Blood Pressure Mean 98 118 109 Pulse Ox 98 97 99 Oxygen Delivery Method Room Air Nasal Cannula Oxygen Flow Rate (L/min) 2 05/07/25 13:00 Temperature Temperature Source Pulse Rate 84 Respiratory Rate 17 Respiratory Effort Blood Pressure 163/100 H Blood Pressure Mean 118 Pulse Ox 99 Oxygen Delivery Method Oxygen Flow Rate (L/min) MDM MDM MDM Narrative Medical decision making narrative: The differential diagnosis includes but not limited to ACS versus pneumonia versus pneumothorax. I have low clinical suspicion for pulmonary embolism because history and physical does not support this, and he is PERC negative as well. He may have dehydration, or other electrolyte abnormality versus panic attack as well. EKG was obtained and interpreted by myself independently as normal sinus rhythm at 79 bpm without ectopy or acute ST changes. No STEMI. I reviewed his laboratory work and he has normal white count of 6.3, hemoglobin normal at 15.2, hematocrit 44.2, platelet count 169. Glucose is elevated at 201 with a normal anion gap of 13 so I doubt diabetic ketoacidosis, BUN normal at 17 and creatinine 0.75, normal sodium and potassium. Initial high-sensitivity troponin is 7. I reviewed the radiology report of the CTA of the chest and there is no pulmonary embolism or dissection. It comments on slightly dilated aortic root. This was seen on his echocardiogram and review of his prior records. I did add a BNP which is normal at 156. I doubt CHF. I do not feel Lasix is indicated. Patient was having periods of apnea where he will fall asleep, and startle himself awake. He does have history of obstructive sleep apnea on CPAP. I discussed patient with Dr. Rodriguez his primary care provider who would like to see him in the office for overnight pulse oximetry as he may be having a leak in his CPAP. He would like to see him prior to sending him back to Dr. Goldman with pulmonology for a sleep study/follow-up. His family was concerned regarding his reported brain tumor. I performed CT of the brain which shows no acute process, no hemorrhage, no mass. In discussion with his primary care provider, he does have history of a meningioma for which she is being followed by neurosurgery. At this point in time as long as his repeat troponin is normal, I feel he can be discharged to follow-up. His repeat troponin is 9. I feel he has been ruled out for ACS with biomarkers. At this point in time I am unsure as to the cause of his lightheadedness and dizziness, I do feel he can be discharged to follow-up. Return instructions to the emergency department were reviewed. Disposition is discharged home in stable condition. History & Record Review Discussion w/independent historian: Patient and Family Additional record(s) reviewed:: Prior outpatient record Lab Data Attestation: I reviewed the patient's lab results. Labs: Laboratory Results - last 24 hr 05/07/25 05/07/25 09:13 12:12 WBC 6.3 RBC 5.30 Hgb 15.2 Hct 44.2 MCV 83.4 MCH 28.7 MCHC 34.4 RDW Std Deviation 39.1 RDW Coeff of Genesis 12.9 Plt Count 169 MPV 9.9 Immature Gran % (Auto) 0.600 Neut % (Auto) 75.7 H Lymph % (Auto) 13.8 L [place] % (Auto) 6.8 Eos % (Auto) 2.5 Baso % (Auto) 0.6 Absolute Neuts (auto) 4.8 Absolute Lymphs (auto) 0.87 Nucleated RBC % 0 Sodium 138 Potassium 4.2 Chloride 100 Carbon Dioxide 25.2 Anion Gap 13 BUN 17 Creatinine 0.75 Estim Creat Clear Calc 147.25 Est GFR (MDRD) Non-Af 106 BUN/Creatinine Ratio 22.5 H Glucose 201 H Calcium 9.4 Troponin T High Sens 7 Troponin T Hi Sens 2 Hr 9 NT pro BNP II 156 Radiography Diagnostic Testing: Clinical Impression(s) from Imaging Studies Chest CTA 05/07/25 10:02 IMPRESSION: There is no visible pulmonary embolus. Aortic root measures 3.9 cm in AP diameter. There is patchy interstitial infiltrate in the right and left with no focal consolidation. There is a 1.0 cm solid nodule near the right hilum with a central calcification, image 128/253. follow-up per Fleischner criteria. Reading Location: [facility] 05/07/25 10:41 IMPRESSION: No intracranial hemorrhage or other acute process is seen Reading Location: [place] [id number] Discharge Plan Triage Chief Complaint: Chest Pain ED Provider: Naeem Gonzalez Dx/Rx/DC Orders Clinical Impression: Lightheadedness, LUIS on CPAP, Chest pain Instructions: ED Chest Pain, Uncertain Cause, ED Dizziness, Uncertain Cause, ED Near-Fainting, Uncertain Cause Prescriptions: No Action nitroglycerin 0.4 mg tablet, sublingual 0.4 mg SUBLINGUAL Q5-15M PRN (Reason: Cardiac/Chest Pain) metformin 500 mg tablet extended release 24 hr 1,000 mg PO BID insulin lispro [Humalog KwikPen Insulin] 100 unit/mL insulin pen 25 unit SC QAC sildenafil 100 mg tablet 50 mg PO DAILY PRN (Reason: sexual activity) Patient Comments: 1/2 Tablet daily as needed prior to sex, do not take nitro within 24 hours of viagra gabapentin 800 mg tablet 800 mg PO TID Patient Comments: TAKE 1 TABLET THREE TIMES DAILY metoprolol succinate 25 mg tablet extended release 24 hr 25 mg PO DAILY Patient Comments: TAKE 1 TABLET BY MOUTH DAILY PreserVision AREDS 4,296 mcg-226 mg-90 mg capsule 1 cap PO BID Ozempic 2 mg/dose (8 mg/3 mL) pen injector 2 mg subcut QWEEK icosapent ethyl [Vascepa] 1 gram Capsule 2 g PO BID Jardiance 25 mg Tablet 25 mg PO DAILY insulin glargine [Lantus Solostar U-100 Insulin] 100 unit/mL (3 mL) insulin pen 50 unit SUBCUT BID Primary Care Provider: Cb Rodriguez Referrals: bC Rodriguez MD [Primary Care Provider] - 3-5 Days Activity Restrictions/Additional Instructions: Follow-up with Dr. Rodriguez in the next 3 to 5 days as you may need to have an overnight pulse oximeter test. Call the office for an appointment to be seen in the next few days. Return with new or worsening symptoms. Print Language: [place] Disposition Disposition: Home, Self Care
[2025-05-07 09:19] LABS: Hematocrit 44.2 % (40-54); Hemoglobin 15.2 g/dL (13.0-16.5); Immature Granulocytes Count 0.040 X10^3/uL (0.0-0.0); Mean Corp Hgb Conc 34.4 g/dL (32-36); Mean Corpuscular Volume 83.4 fL (80-94); Mean Platelet Vol. 9.9 fl (6.2-12.0); NRBC Flagged by Analyzer 0 % (0-5); Platelet Count 169 K/mm3 (150-450); RBC Distribution Width CV 12.9 % (11.6-14.6); RBC Distribution Width SD 39.1 fl (35.1-43.9); Red Blood Count 5.30 M/mm3 (4.6-6.2); White Blood Count 6.3 K/mm3 (4.4-11.0)
[2025-05-07 09:53] LABS: Anion Gap 13 (5-15); BUN 17 mg/dL (4-19); BUN/Creat Ratio 22.5 RATIO (10-20); Calcium,Total 9.4 mg/dL (7.6-11.0); Carbon Dioxide 25.2 mmol/L (21.0-32.0); Chloride 100 mmol/L (98-108); Estimated Creatinine Clearance 147.25 ml/min (50-250); Glucose 201 mg/dL (70-99); Potassium 4.2 mmol/L (3.3-5.1); Troponin T High Sensitivity 7 ng/L (<=22)
--- NOTE | 2025-05-07 10:02 | CT_ITS ---
PROCEDURE: CTA CHEST W/WO CONTRAST 05/07/2025 REASON FOR EXAM: CHEST PAIN, HISTORY OF DILATED AORTIC ROOT TECHNIQUE: CTA CHEST W/WO CONTRAST Multiplanar Sagittal and Coronal images were obtained. CONTRAST: 99 cc Isovue 370 One or more dose reduction techniques were used (e.g., Automated exposure control, adjustment of the mA and/or kV according to patient size, use of iterative reconstruction technique). RADIATION DOSE SUMMARY: DLP: 545.79 mGycm COMPARISON: None FINDINGS: Hardware: The spinal stimulator is noted in the midthoracic region. Lymph nodes: There is no pathologic adenopathy by size criteria. Heart: Intact RV/LV Diameter Ratio: 0.8 Thoracic Aorta: Aortic root measures 3.9 cm in AP diameter. Proximal arch measures 3.5 cm. The descending aorta measures 3.0 cm. There is no evidence of dissection. Pulmonary Vessels: Main pulmonary artery Hounsfield units = 272. There is no visible pulmonary embolus. Lungs and Airways: There is patchy interstitial infiltrate in the right and left with no focal consolidation. There is a 1.0 cm solid nodule near the right hilum with a central calcification, image 128/253. there is atelectasis or scar in the left lingular segment. Pleura: There is no pneumothorax or effusion Upper Abdomen: Unremarkable Bones: There is no acute bony abnormality. CT/CTA Chest W/WO Contrast IMPRESSION: There is no visible pulmonary embolus. Aortic root measures 3.9 cm in AP diameter. There is patchy interstitial infiltrate in the right and left with no focal con solidation. There is a 1.0 cm solid nodule near the right hilum with a central calcificatio n, image 128/253. follow-up per Fleischner criteria. Reading Location: [facility]
[2025-05-07 10:03] VITALS: BP 150/72; PULSE 93; RESP 24; O2SAT 98
--- NOTE | 2025-05-07 10:41 | CT_ITS ---
PROCEDURE: BRAIN/HEAD WITHOUT CONTRAST 05/07/2025 REASON FOR EXAM: APNEA, HEADACHE TECHNIQUE: BRAIN/HEAD WITHOUT CONTRAST Coronal and Sagittal reconstruction series were provided. One or more dose reduction techniques were used (e.g., Automated exposure control, adjustment of the mA and/or kV according to patient size, use of iterative reconstruction technique. RADIATION DOSE SUMMARY: CTDlvol: 44.9 mGy DLP: 846.73 mGycm COMPARISON: None provided. FINDINGS: Brain: Normal. No orbital abnormality is noted. No extra-axial fluid collection is seen. CSF Spaces: Normal Sinuses/Mastoids: Clear at visualized levels Bones: No acute osseous process is seen. CT/Brain/Head without Contrast IMPRESSION: No intracranial hemorrhage or other acute process is seen Reading Location: [place] [id number]
[2025-05-07 11:00] VITALS: BP 149/103; PULSE 85; RESP 11; O2SAT 97
[2025-05-07 11:28] LABS: Pro- Brain NATRIURETIC PEPTIDE 156 pg/mL (<=900)
[2025-05-07 12:00] VITALS: BP 152/90; PULSE 83; RESP 19; O2SAT 99
[2025-05-07 13:00] VITALS: BP 163/100; PULSE 84; RESP 17; O2SAT 99
[2025-05-07 13:08] LABS: Troponin T High Sens 2 HR 9 ng/L (<=22)
[2025-05-07 13:45] VITALS: BP 155/88; PULSE 83; RESP 15; TEMP 36.3; O2SAT 100
== END 2025-05-07 13:46 | disposition home or self-care (01) ==
PROVIDERS: Emergency Provider Emergency Medicine; PCP Family Medicine; Visit Provider Emergency Medicine
DX: R07.9 Chest pain, unspecified (principal); Z79.4 Long term (current) use of insulin; E11.40 Type 2 diabetes mellitus with diabetic neuropathy, unspecified; E78.5 Hyperlipidemia, unspecified; R42 Dizziness and giddiness; G47.33 Obstructive sleep apnea (adult) (pediatric); I10 Essential (primary) hypertension; Z99.89 Dependence on other enabling machines and devices; Z79.84 Long term (current) use of oral hypoglycemic drugs; Z79.899 Other long term (current) drug therapy; Z79.85 Long-term (current) use of injectable non-insulin antidiabetic drugs; Z98.52 Vasectomy status
CPT/HCPCS: 70450; 71275; 80048; 83880; 84484; 85025; 93005; 99284; Q9967

== ENCOUNTER → 2025-05-14 | Outpatient (CLI) | payer OTHER, SELFPAY ==
--- NOTE | 2025-05-14 11:38 | RAD_ITS ---
EXAM: XR Abdomen, 2 Views and XR Chest, 1 View CLINICAL INDICATION: ABDOMINAL PAIN, EVAL CONSTIPATION TECHNIQUE: Frontal view of the chest, frontal view of the abdomen/pelvis and upright or decubitus view of the abdomen. COMPARISON: No relevant prior studies available. FINDINGS: LUNGS AND PLEURAL SPACES: Unremarkable. No consolidation. No pneumothorax. HEART: Unremarkable. No cardiomegaly. MEDIASTINUM: Unremarkable. Normal mediastinal contour. INTRAPERITONEAL SPACE: No free air. GASTROINTESTINAL TRACT: Fecal retention in the colon consistent with constipation. No dilation. BONES/JOINTS: Unremarkable. No acute fracture. TUBES, LINES AND DEVICES: Neurostimulator in the right lower abdominal quadrant. RAD/Acute Abdomen Inc Chest IMPRESSION: Fecal retention in the colon consistent with constipation. Reading Location: [facility]
[2025-05-14 15:24] LABS: Hematocrit 44.8 % (40-54); Hemoglobin 15.2 g/dL (13.0-16.5); Immature Granulocytes Count 0.070 X10^3/uL (0.0-0.0); Mean Corp Hgb Conc 33.9 g/dL (32-36); Mean Corpuscular Volume 84.8 fL (80-94); Mean Platelet Vol. 10.6 fl (6.2-12.0); NRBC Flagged by Analyzer 0 % (0-5); Platelet Count 221 K/mm3 (150-450); RBC Distribution Width CV 12.9 % (11.6-14.6); RBC Distribution Width SD 39.7 fl (35.1-43.9); Red Blood Count 5.28 M/mm3 (4.6-6.2); White Blood Count 8.4 K/mm3 (4.4-11.0)
[2025-05-14 16:33] LABS: AST(SGOT) 14 U/L (<=37); Alanine Aminotransfer ALT/SGPT 6 U/L (<=46); Albumin, Serum 4.2 g/dL (3.5-5.0); Alkaline Phosphatase 105 U/L (40-129); Anion Gap 10 (5-15); BUN 18 mg/dL (4-19); BUN/Creat Ratio 20.9 RATIO (10-20); Calcium,Total 9.4 mg/dL (7.6-11.0); Carbon Dioxide 27.0 mmol/L (21.0-32.0); Chloride 101 mmol/L (98-108); Globulin 2.5 g/dL (2.2-4.2); Glucose 188 mg/dL (70-99); Lipase 22 U/L (13-75); Potassium 4.3 mmol/L (3.3-5.1)
== END | disposition home or self-care (01) ==
LOC: MTLAB 11:38
PROVIDERS: PCP Family Medicine; Referring Provider Family Medicine; Visit Provider Family Medicine
DX: R10.9 Unspecified abdominal pain (principal)
CPT/HCPCS: 36415; 74022; 80053; 83690; 85025

== ENCOUNTER → 2025-06-06 | Outpatient (CLI) | payer OTHER, SELFPAY | END | disposition home or self-care (01) | LOC: PSN 07:58 | PROVIDERS: PCP Family Medicine; Referring Provider Family Medicine; Visit Provider Family Medicine | DX: R55 Syncope and collapse (principal) | CPT/HCPCS: 95819 ==

== ENCOUNTER → 2025-06-27 | Outpatient (CLI) | payer OTHER, SELFPAY ==
[2025-06-27 16:17] LABS: Mucous, Urine 0 SEEN /hpf (<or=2+); Red Blood Cells-Urine 0 SEEN /hpf (0-5)
[2025-06-27 17:42] LABS: Color, Urine Yellow (Yellow); Glucose, Dipstick 1000 mg/dl (Normal); Ketone-Dipstick Negative (Negative); Leukocyte Esterase-Dipstick Negative /ul (Negative); Nitrite-Dipstick Negative (Negative); Occult Blood-Urine Negative /ul (Negative); Protein-Dipstick 30 mg/dl (Negative); Specific Gravity, Urine 1.020 (1.002-1.030); Urine Bilirubin Dipstick Negative (Negative)
[2025-06-27 17:45] LABS: Hematocrit 44.2 % (40-54); Hemoglobin 15.3 g/dL (13.0-16.5); Immature Granulocytes Count 0.050 X10^3/uL (0.0-0.0); Mean Corp Hgb Conc 34.6 g/dL (32-36); Mean Corpuscular Volume 84.8 fL (80-94); Mean Platelet Vol. 10.3 fl (6.2-12.0); NRBC Flagged by Analyzer 0 % (0-5); Platelet Count 256 K/mm3 (150-450); RBC Distribution Width CV 13.2 % (11.6-14.6); RBC Distribution Width SD 40.3 fl (35.1-43.9); Red Blood Count 5.21 M/mm3 (4.6-6.2); White Blood Count 7.9 K/mm3 (4.4-11.0)
[2025-06-27 17:57] LABS: Squamous Epithelial Cells - UA 0-5 SEEN /hpf (0-5)
[2025-06-27 18:32] LABS: Creatinine, Urine (random) 111.00 mg/dL (39.00-259.00); Microalbumin,Random Urine 49.2 mg/L (<20 mg/L)
[2025-06-27 19:22] LABS: AST(SGOT) 12 U/L (<=37); Alanine Aminotransfer ALT/SGPT 7 U/L (<=46); Albumin, Serum 4.2 g/dL (3.5-5.0); Alkaline Phosphatase 94 U/L (40-129); Anion Gap 14 (5-15); BUN 12 mg/dL (4-19); BUN/Creat Ratio 16.6 RATIO (10-20); Calcium,Total 9.4 mg/dL (7.6-11.0); Carbon Dioxide 24.7 mmol/L (21.0-32.0); Chloride 98 mmol/L (98-108); Cholesterol 203 mg/dL (<=200); Globulin 2.6 g/dL (2.2-4.2); Glucose 146 mg/dL (70-99); Low Density Lipoprotein Calc. 122 mg/dL; Potassium 3.9 mmol/L (3.3-5.1); Triglycerides 154 mg/dL; Very Low Density Lipoprotein 31 mg/dL (5-40); cholesterol:hdl ratio screen 4.03
== END | disposition home or self-care (01) ==
LOC: MFPLAB 16:03
PROVIDERS: PCP Family Medicine; Referring Provider Family Medicine; Visit Provider Family Medicine
DX: E11.69 Type 2 diabetes mellitus with other specified complication (principal); E11.59 Type 2 diabetes mellitus with other circulatory complications; E03.8 Other specified hypothyroidism
CPT/HCPCS: 36415; 80053; 80061; 81001; 82043; 82570; 83036; 84439; 84443; 85025

== ENCOUNTER → 2025-07-18 | Outpatient (CLI) | payer OTHER, SELFPAY ==
--- NOTE | 2025-07-18 09:44 | NM_ITS ---
PROCEDURE: GASTRIC EMPTYING STUDY 07/18/2025 REASON FOR EXAM: EARLY SAITIETY COMPARISON: None TECHNIQUE: Procedure Code: NMGES Modality: NM Procedure: GASTRIC EMPTYING STUDY The patient ingested a standard meal of oatmeal, sulfur colloid, and water. There was no vomiting postprandially. Anterior and posterior planar images of the upper abdomen were obtained for 1 minute immediately following the meal at 1h, 2h and 4h if more than 10% of the activity persisted within the stomach. Regions of interest were drawn, and a geometric mean was used to calculate a [id number]. RADIOPHARMACEUTICAL: Sulfur colloid DOSE 1.2 mCimCi FINDINGS: Percent activity remaining in stomach: 1 hour 48 % (normal 37-90%) NM/Gastric Emptying Study IMPRESSION: Normal gastric emptying. Reading Location: [id number]
== END | disposition home or self-care (01) ==
LOC: NM 09:38
PROVIDERS: PCP Family Medicine; Referring Provider Family Medicine; Visit Provider Family Medicine
DX: R68.81 Early satiety (principal)
CPT/HCPCS: 78264; A9541

== ENCOUNTER → 2025-09-10 | Outpatient (CLI) | payer OTHER, SELFPAY ==
[2025-09-10 13:30] LABS: Barbiturate Urine NEGATIVE (< 200 ng/mL); Benzodiazepine Urine NEGATIVE (< 200 ng/mL); PCP Urine NEGATIVE (< 25 ng/mL); THC Urine NEGATIVE (< 50 ng/mL)
== END | disposition home or self-care (01) ==
PROVIDERS: PCP Family Medicine; Referring Provider Anesthesiology Pain Medicine; Visit Provider Anesthesiology Pain Medicine
DX: F11.20 Opioid dependence, uncomplicated (principal)
CPT/HCPCS: 80307

== ENCOUNTER → 2025-10-01 | Outpatient (CLI) | payer OTHER, SELFPAY ==
[2025-10-01 09:09] LABS: Mucous, Urine 0 SEEN /hpf (<or=2+); Red Blood Cells-Urine 0 SEEN /hpf (0-5); Squamous Epithelial Cells - UA 0 SEEN /hpf (0-5)
[2025-10-01 10:18] LABS: Hematocrit 45.8 % (40-54); Hemoglobin 15.2 g/dL (13.0-16.5); Immature Granulocytes Count 0.040 X10^3/uL (0.0-0.0); Mean Corp Hgb Conc 33.2 g/dL (32-36); Mean Corpuscular Volume 86.9 fL (80-94); Mean Platelet Vol. 10.5 fl (6.2-12.0); NRBC Flagged by Analyzer 0 % (0-5); Platelet Count 213 K/mm3 (150-450); RBC Distribution Width CV 12.6 % (11.6-14.6); RBC Distribution Width SD 40.0 fl (35.1-43.9); Red Blood Count 5.27 M/mm3 (4.6-6.2); White Blood Count 7.0 K/mm3 (4.4-11.0)
[2025-10-01 10:31] LABS: Color, Urine Yellow (Yellow); Glucose, Dipstick 250 mg/dl (Normal); Ketone-Dipstick Negative (Negative); Leukocyte Esterase-Dipstick Negative /ul (Negative); Nitrite-Dipstick Negative (Negative); Occult Blood-Urine Negative /ul (Negative); Protein-Dipstick 15 mg/dl (Negative); Specific Gravity, Urine 1.020 (1.002-1.030); Urine Bilirubin Dipstick Negative (Negative)
[2025-10-01 10:49] LABS: Creatinine, Urine (random) 91.90 mg/dL (39.00-259.00); Microalbumin,Random Urine 17.4 mg/L (<20 mg/L)
[2025-10-01 13:17] LABS: AST(SGOT) 15 U/L (<=37); Alanine Aminotransfer ALT/SGPT 8 U/L (<=46); Albumin, Serum 4.1 g/dL (3.5-5.0); Alkaline Phosphatase 119 U/L (40-129); Anion Gap 13 (5-15); BUN 18 mg/dL (4-19); BUN/Creat Ratio 23.7 RATIO (10-20); Calcium,Total 9.3 mg/dL (7.6-11.0); Carbon Dioxide 23.5 mmol/L (21.0-32.0); Chloride 99 mmol/L (98-108); Cholesterol 211 mg/dL (<=200); Globulin 2.6 g/dL (2.2-4.2); Glucose 291 mg/dL (70-99); Low Density Lipoprotein Calc. 134 mg/dL; Potassium 4.3 mmol/L (3.3-5.1); Triglycerides 100 mg/dL; Very Low Density Lipoprotein 20 mg/dL (5-40); cholesterol:hdl ratio screen 3.55
== END | disposition home or self-care (01) ==
LOC: MFPLAB 09:05
PROVIDERS: PCP Family Medicine; Visit Provider Family Medicine
DX: E11.69 Type 2 diabetes mellitus with other specified complication (principal); E06.3 Autoimmune thyroiditis
CPT/HCPCS: 36415; 80053; 80061; 81001; 82043; 82570; 83036; 84439; 84443; 85025